=== PATIENT | female | born 1955 | race Caucasian/White ===

== ENCOUNTER 2017-09-25 20:48 | Emergency (ER) | payer MEDICARE, BC ==
[2017-09-25 21:24] VITALS: RESP 18
--- NOTE | 2017-09-25 21:57 | ED ---
General Adult HPI - General Chief complaint: Fall Stated complaint: fall/back & neck pain Time Seen by Provider: 09/25/17 21:30 Source: patient, RN notes reviewed Mode of arrival: ambulatory Limitations: no limitations - History of Present Illness Initial comments: 62-year-old female presents to the emergency department for chief complaint of back pain. Patient states she was walking outside last night when she slipped and fell on her back. Patient denies hitting her head or loss of consciousness. Patient states that her afterwards but continued to progress throughout the day today. Patient states it has continued to get more stiff and sore. Patient has a history of rheumatoid arthritis and fibromyalgia. Patient states she has used medical marijuana earlier today but has not tried Motrin or Tylenol. Patient states her neck also feels tender and sore. Patient states she is able to drink liquids without any problem and denies any shortness of breath or difficulty breathing. Patient denies any other complaints at this time including abdominal pain, shortness of breath, chest pain, nausea or vomiting. - Related Data Home Medications Medication Instructions Recorded Confirmed Citalopram Hydrobromide [CeleXA] 20 mg PO DAILY 11/04/15 09/25/17 Etanercept [Enbrel] 50 mg SQ FR 11/04/15 09/25/17 Folic Acid 0.8 mg PO DAILY 11/04/15 09/25/17 Gabapentin [Neurontin] 400 mg PO TID 11/04/15 09/25/17 Hydrochlorothiazide [Hydrodiuril] 25 tab PO DAILY 11/04/15 09/25/17 Meloxicam [Mobic] 15 mg PO DAILY 11/04/15 09/25/17 Nortriptyline [Pamelor] 100 mg PO DAILY 11/04/15 09/25/17 Omeprazole [PriLOSEC] 20 mg PO [id number]-[id number] 11/04/15 09/25/17 traMADol HCL [Ultram] 50 mg PO BID 11/04/15 09/25/17 Advair Diskus (Unsure Dose) 1 puff INHALATION DAILY 12/15/15 09/25/17 Previous Rx's Medication Instructions Recorded Atorvastatin Calcium [Lipitor] 10 mg PO HS #30 tab 11/07/15 Colchicine [Colcrys] 0.6 mg PO DAILY #30 tab 11/07/15 Cyclobenzaprine [Flexeril] 5 mg PO TID #12 tablet 09/25/17 Allergies Allergy/AdvReac Type Severity Reaction Status Date / Time pregabalin [From Lyrica] Allergy Hallucinati Verified 09/25/17 21:24 ons Review of Systems ROS Statement: Those systems with pertinent positive or pertinent negative responses have been documented in the HPI. ROS Other: All systems not noted in ROS Statement are negative. Past Medical History Past Medical History: Asthma, Chest Pain / Angina, Heart Failure, Fibromyalgia, GERD/Reflux, Hyperlipidemia, Hypertension, Osteoarthritis (OA), Rheumatoid Arthritis (RA) Additional Past Medical History / Comment(s): DJD. Pericarditis. Gout. RA. Hiatal Hernia. FATTY LIVER. HX UTI'S. History of Any Multi-Drug Resistant Organisms: None Reported Past Surgical History: Appendectomy, Cholecystectomy, Heart Catheterization, Hysterectomy Additional Past Surgical History / Comment(s): CTR AIDAN, EXC CYSTS AIDAN WRISTS. C. CATH 11/07/15, [place]. Past Anesthesia/Blood Transfusion Reactions: Previous Problems w/ Anesthesia Additional Past Anesthesia/Blood Transfusion Reaction / Comment(s): Claustrophobia. HAD RASH AFTER EPIDURAL INJ. Past Psychological History: No Psychological Hx Reported Smoking Status: Former smoker Past Alcohol Use History: Rare Past Drug Use History: None Reported - Past Family History Father History Unknown: Yes Mother Family Medical History: Cancer Additional Family Medical History / Comment(s): ovarian,kidney cancer General Exam Limitations: no limitations General appearance: alert, in no apparent distress Head exam: Present: atraumatic, normocephalic, normal inspection Eye exam: Present: normal appearance, PERRL, EOMI. Absent: scleral icterus, conjunctival injection, periorbital swelling ENT exam: Present: normal exam, mucous membranes moist Neck exam: Present: tenderness (Patient has tenderness on the vertebrae in the neck.). Absent: meningismus, full ROM (Patient has slightly limited range of motion in the neck.), lymphadenopathy Respiratory exam: Present: normal lung sounds bilaterally. Absent: respiratory distress, wheezes, rales, rhonchi, stridor Cardiovascular Exam: Present: regular rate, normal rhythm, normal heart sounds. Absent: systolic murmur, diastolic murmur, rubs, gallop, clicks GI/Abdominal exam: Present: soft, normal bowel sounds. Absent: distended, tenderness, guarding, rebound, rigid Back exam: Present: tenderness (Tenderness of the thoracic and lumbar spine.), paraspinal tenderness (Tenderness to the upper left paraspinal area), vertebral tenderness (Vertebral tenderness from C-spine to lumbar spine.). Absent: full ROM (Patient has some limited flexion and twisting of the low back.), CVA tenderness (R), CVA tenderness (L) Neurological exam: Present: alert, oriented X3, CN II-XII intact Course Vital Signs 09/25/17 21:20 Temperature 98.3 F Pulse Rate 62 Respiratory 18 Rate Blood Pressure 173/74 O2 Sat by Pulse 99 Oximetry Medical Decision Making - Medical Decision Making 62-year-old female presents to the emergency department for a chief complaint of back pain after falling last night. Patient denies hitting her head. Patient has a history of rheumatoid arthritis and fibromyalgia and has chronic back pain. Patient has not tried Motrin or Tylenol for pain relief but has tried medical marijuana earlier this morning. Patient states she is also tender in her neck. Patient states she is drinking liquids fine. She denies any difficulty breathing. Patient denies bladder or bowel changes. Patient denies numbness or tingling in the bilateral lower extremities. On exam patient has tenderness from the C-spine to the lumbar spine. She does have some paravertebral tenderness on the upper left back. X-rays were ordered of the C-spine, thoracic spine, and lumbar spine. X-ray of the C-spine shows no acute fracture or dislocation. The prevertebral soft tissue appears within normal limits. Thoracic spine shows no acute fracture or dislocation. Ribs are unremarkable. Lumbar spine x-ray shows satisfactory alignment without evidence of acute fracture or dislocation. Moderate to advanced disc space narrowing L3 to L4 is redemonstrated. Patient likely has muscle strain due to the fall causing the pain along with her chronic back pain, fibromyalgia, and rheumatoid arthritis. Patient will be given Motrin and Flexeril. She is to follow up with primary care provider in one to 2 days. She is to return to the emergency Department if she has any worsening symptoms, bladder or bowel changes , or difficulty breathing. Disposition Clinical Impression: Fall Disposition: HOME SELF-CARE Condition: Good Instructions: Back Pain (ED) Additional Instructions: Please return to the emergency Department if you notice any worsening symptoms or changes in bladder or bowel function. Take Motrin or Tylenol and Flexeril for pain relief. Otherwise follow-up with primary care provider in one to 2 days. Prescriptions: Cyclobenzaprine [Flexeril] 5 mg PO TID #12 tablet Is patient prescribed a controlled substance at discharge?: No Referrals: Van Vicente MD [Primary Care Provider] - 1-2 days Time of Disposition: 22:14
--- NOTE | 2017-09-25 22:03 | XR ---
EXAMINATION TYPE: XR cervical spine comp DATE OF EXAM: 09/25/2017 TECHNIQUE: Frontal, lateral, oblique, swimmers, and open mouth view of the cervical spine are obtaine d. HISTORY: Pain falling injury yesterday COMPARISON: None FINDINGS: The cervical spine is visualized in its entirety from C1 thru the top of T1 level, it is s atisfactory in alignment without evidence of acute fracture or dislocation. The pre-vertebral soft t issue appears within normal limits. The C1-C2 articulation is within normal limits on the open mouth view. Vertebral body heights are maintained. There is moderate multilevel disc space narrowing and s purring. The oblique images are within normal limits. Overlying soft tissue is unremarkable. IMPRESSION: No acute fracture or dislocation is seen in the cervical spine.
--- NOTE | 2017-09-25 22:04 | XR ---
EXAMINATION TYPE: XR thoracic spine complete DATE OF EXAM: 09/25/2017 CLINICAL HISTORY: Fall yesterday with mid back pain. TECHNIQUE: Frontal, lateral, and swimmer's view of thoracic spine are obtained. COMPARISON: None. FINDINGS: Thoracic spine show satisfactory alignment without evidence of acute fracture or dislocatio n. Vertebral body heights and disc space heights are preserved. Visualized ribs are unremarkable. Cholecystectomy clips are incidentally noted. IMPRESSION: No acute fracture or dislocation is seen in the thoracic spine.
--- NOTE | 2017-09-25 22:05 | XR ---
EXAMINATION TYPE: XR lumbar spine 2 or 3V DATE OF EXAM: 09/25/2017 CLINICAL HISTORY: Back pain after falling yesterday. TECHNIQUE: Frontal and lateral images of the lumbar spine are obtained. COMPARISON: Lumbar spine x-ray July 01, 2014 FINDINGS: There are 5 lumbar type vertebral bodies redemonstrated. The lumbar spine shows satisfact ory alignment without evidence of acute fracture or dislocation. Vertebral body heights remain within normal limits. Moderate to advanced disc space narrowing L2-L3 level is redemonstrated. Mild vascula r calcification overlying soft tissue is seen along with cholecystectomy clips. IMPRESSION: No acute fracture or dislocation is seen in the lumbar spine.
[2017-09-25 22:51] VITALS: BP 154/73; PULSE 65; TEMP 98.2
== END 2017-09-25 22:25 | disposition home or self-care (01) ==
LOC: EC 20:48
DX: M54.2 Cervicalgia (principal); M48.061 Spinal stenosis, lumbar region without neurogenic claudication; M54.9 Dorsalgia, unspecified; I11.0 Hypertensive heart disease with heart failure; I50.9 Heart failure, unspecified; J45.909 Unspecified asthma, uncomplicated; M06.9 Rheumatoid arthritis, unspecified; M79.7 Fibromyalgia; M10.9 Gout, unspecified; K21.9 Gastro-esophageal reflux disease without esophagitis; M19.90 Unspecified osteoarthritis, unspecified site; Z87.891 Personal history of nicotine dependence; Z79.1 Long term (current) use of non-steroidal anti-inflammatories (NSAID); Z79.51 Long term (current) use of inhaled steroids; Z79.891 Long term (current) use of opiate analgesic; Z79.899 Other long term (current) drug therapy; Z88.8 Allergy status to other drugs, medicaments and biological substances; W01.0XXA Fall on same level from slipping, tripping and stumbling without subsequent striking against object, initial encounter; Y93.01 Activity, walking, marching and hiking; Y92.89 Other specified places as the place of occurrence of the external cause
CPT/HCPCS: 72050; 72072; 72100; 99283

== ENCOUNTER 2017-10-14 18:56 | Observation (INO) | payer MEDICARE, BC ==
[2017-10-14] MEDS ORDERED: ONDANSETRON 4 MG/2 ML VIAL IVP STA ×2 (19:13→22:59)
[2017-10-14] MEDS ORDERED: SODIUM CHLORIDE 0.9% 1,000 ML IV STA (19:13)
[2017-10-14] MEDS ORDERED: NITROGLYCERIN OINT 1 INCH/GM PACKET TOPICAL STA (19:13)
[2017-10-14] MEDS ORDERED: MORPHINE SULFATE 4 MG/ML SYRINGE IV STA (19:13)
[2017-10-14 19:59] LABS: Basophils % (A) 1 %; Eosinophils # (A) 0.3 k/uL (0-0.7); Eosinophils % (A) 3 %; HCT 44.2 % (34.0-46.0); HGB 15.1 gm/dL (11.4-16.0); Lymphocytes # (A) 3.8 k/uL (1.0-4.8); Lymphocytes % (A) 41 %; MCH 29.6 pg (25.0-35.0); MCHC 34.1 g/dL (31.0-37.0); MCV 86.8 fL (80.0-100.0); Mean Platelet Volume 7.5; Monocytes # (A) 0.5 k/uL (0-1.0); Monocytes % (A) 6 %; Neutrophils # (A) 4.5 k/uL (1.3-7.7); Neutrophils % (A) 48 %; Platelet Count 304 k/uL (150-450); RBC 5.09 m/uL (3.80-5.40); RDW 12.2 % (11.5-15.5); WBC 9.3 k/uL (3.8-10.6)
--- NOTE | 2017-10-14 20:01 | CT ---
EXAMINATION TYPE: CT brain wo con DATE OF EXAM: 10/14/2017 COMPARISON: NONE HISTORY: Headache and chest pain today. CT DLP: 1022.8 mGycm Automated exposure control for dose reduction was used. FINDINGS: Ventricles of normal size. There is no mass effect nor midline shift. There is no sign of intracrania l hemorrhage. The calvarium is intact. IMPRESSION: NEGATIVE CT SCAN OF THE BRAIN.
[2017-10-14 20:05] LABS: ALT 38 U/L (9-52); AST 23 U/L (14-36); Albumin 4.4 g/dL (3.5-5.0); Alkaline Phosphatase 80 U/L (38-126); Anion Gap 14 mmol/L; Blood Urea Nitrogen 15 mg/dL (7-17); Calcium 9.5 mg/dL (8.4-10.2); Carbon Dioxide 23 mmol/L (22-30); Chloride 107 mmol/L (98-107); Glucose 107 mg/dL (74-99); Magnesium 2.2 mg/dL (1.6-2.3); Potassium 3.5 mmol/L (3.5-5.1); Sodium 144 mmol/L (137-145); Total Bilirubin 0.4 mg/dL (0.2-1.3)
[2017-10-14 20:08] LABS: D-Dimer 0.22 mg/L FEU (<0.60); Partial Thromboplastin Time 22.9 sec (22.0-30.0); Prothrombin Time 9.9 sec (9.0-12.0)
[2017-10-14 20:15] LABS: Creatine Kinase 119 U/L (30-135)
[2017-10-14 20:27] LABS: Troponin I <0.012 ng/mL (0.000-0.034)
--- NOTE | 2017-10-14 20:30 | XR ---
EXAMINATION TYPE: XR chest 2V DATE OF EXAM: 10/14/2017 COMPARISON: NONE HISTORY: Chest pain TECHNIQUE: Frontal and lateral views of the chest are obtained. FINDINGS: Heart and mediastinum are normal. Lungs are clear. Diaphragm is normal. There are chest le ads. Bony thorax is intact. IMPRESSION: Normal chest. There is clearing of the atelectasis at the left lung base compared to old exam.
--- NOTE | 2017-10-14 22:48 | ED ---
Chest Pain HPI - General Chief Complaint: Chest Pain Stated Complaint: Chest pain Time Seen by Provider: 10/14/17 19:07 Source: patient Mode of arrival: wheelchair Limitations: no limitations - History of Present Illness Initial Comments: She had a headache for about 24 hours now for the last 2 hours prior to arrival to the ER she developed the chest pain chest pain is 6/10 chest pain gets worse with a deep breaths. Today she still has a headache it's better than earlier in the day no neck stiffness has some chest pain is she is she is short-winded no abdominal pain no frequency urgency dysuria no symptoms of TIA or CVA - Related Data Home Medications Medication Instructions Recorded Confirmed Etanercept [Enbrel] 50 mg SQ FR 11/04/15 10/14/17 Omeprazole Magnesium [PriLOSEC OTC] 20 mg PO DAILY 10/14/17 10/14/17 diphenhydrAMINE [Benadryl] 25 mg PO HS 10/14/17 10/14/17 Allergies Allergy/AdvReac Type Severity Reaction Status Date / Time pregabalin [From Lyrica] Allergy Hallucinati Verified 10/14/17 19:44 ons Review of Systems ROS Statement: Those systems with pertinent positive or pertinent negative responses have been documented in the HPI. ROS Other: All systems not noted in ROS Statement are negative. EKG Findings - EKG Comments: EKG Findings:: EKG is normal sinus rhythm ventricular rate 77 TN interval is 180 QRS duration is 90 QT/QTc is 386/436 review of systems didn't does not reveal any ST elevation or ST depression Past Medical History Past Medical History: Asthma, Chest Pain / Angina, Heart Failure, Fibromyalgia, GERD/Reflux, Hyperlipidemia, Hypertension, Osteoarthritis (OA), Rheumatoid Arthritis (RA) Additional Past Medical History / Comment(s): DJD. Pericarditis. Gout. RA. Hiatal Hernia. FATTY LIVER. HX UTI'S. History of Any Multi-Drug Resistant Organisms: None Reported Past Surgical History: Appendectomy, Cholecystectomy, Heart Catheterization, Hysterectomy Additional Past Surgical History / Comment(s): CTR AIDAN, EXC CYSTS AIDAN WRISTS. C. CATH 11/07/15, [place]. Past Anesthesia/Blood Transfusion Reactions: Previous Problems w/ Anesthesia Additional Past Anesthesia/Blood Transfusion Reaction / Comment(s): Claustrophobia. HAD RASH AFTER EPIDURAL INJ. Past Psychological History: No Psychological Hx Reported Smoking Status: Former smoker Past Alcohol Use History: Rare Past Drug Use History: Marijuana - Past Family History Father History Unknown: Yes Mother Family Medical History: Cancer Additional Family Medical History / Comment(s): ovarian,kidney cancer General Exam - General Exam Comments Initial Comments: General: The patient is awake and alert, in no distress, and does not appear acutely ill. Distress from chest pain Skin: Skin is warm and dry and no rashes or lesions are noted. Eye: Pupils are equal, round and reactive to light, extra-ocular movements are intact; there is normal conjunctiva bilaterally. Ears, nose, mouth and throat: There are moist mucous membranes and no oral lesions. Neck: The neck is supple, there is no tenderness or JVD, no signs of any meningitis Cardiovascular: There is a regular rate and rhythm. No murmur, rub or gallop is appreciated. Respiratory: To auscultation bilateral, no wheezing no rhonchi no distress respiratory cox noticed Gastrointestinal: Soft, non-distended, non-tender abdomen without masses or organomegaly noted. There is no rebound or guarding present. Bowel sounds are unremarkable. Back: There is no tenderness to palpation in the midline. There is no obvious deformity. Musculoskeletal: Normal ROM, no tenderness, There is no pedal edema. There is no calf tenderness or swelling. No cords were appreciated. Neurological: CN II-XII intact, Cranial nerves III through XII are intact. There are no obvious motor or sensory deficits. Coordination appears grossly intact. Speech is normal. Psychiatric: Cooperative, appropriate mood & affect, normal judgment. Limitations: no limitations Course Vital Signs 10/14/17 10/14/17 10/14/17 19:00 19:37 20:13 Temperature 97.1 F L Pulse Rate 82 92 80 Respiratory 18 18 18 Rate Blood Pressure 168/103 167/65 156/78 O2 Sat by Pulse 97 98 98 Oximetry 10/14/17 21:11 Temperature Pulse Rate 80 Respiratory 18 Rate Blood Pressure 155/80 O2 Sat by Pulse 98 Oximetry Centering she has a headache for the whole day and now chest pain in case she needs any blood thinners a lot of make sure she is not bleeding intracranially considering that head CT was done which is unremarkable d-dimer, CBC, CMP, troponin, EKG, chest x-ray are unremarkable considering her risk factors being 62 and ongoing chest pain she be admitted for unstable angina, cardiology be consulted Disposition Clinical Impression: Headache, Chest pain Disposition: ADMITTED IP TO THIS HOSP Condition: Good Referrals: Van Vicente MD [Primary Care Provider] - 1-2 days
[2017-10-14] MEDS: MORPHINE SULFATE 4 MG/ML SYRINGE IV PRN ×2 (23:04→23:57)
[2017-10-14 23:45] VITALS: BMI 30.5
[2017-10-14] MEDS ORDERED: ACETAMINOPHEN TAB 325 MG TAB PO PRN (23:53)
[2017-10-14] MEDS: NITROGLYCERIN OINT 1 INCH/GM PACKET TOPICAL SCH (23:57)
[2017-10-15 02:04] LABS: Creatine Kinase 89 U/L (30-135)
[2017-10-15 02:15] LABS: Troponin I <0.012 ng/mL (0.000-0.034)
[2017-10-15] MEDS: ONDANSETRON 4 MG/2 ML VIAL IVP PRN ×4 (02:35→21:03)
[2017-10-15] MEDS: MORPHINE SULFATE 4 MG/ML SYRINGE IV PRN ×2 (02:35→05:51)
[2017-10-15] MEDS: NITROGLYCERIN OINT 1 INCH/GM PACKET TOPICAL SCH (05:25)
[2017-10-15 07:50] LABS: Cholesterol 168 mg/dL (<200); HDL Cholesterol 44 mg/dL (40-60); LDL Cholesterol,Calculated 106 mg/dL (0-99); Triglycerides 89 mg/dL (<150)
[2017-10-15 08:11] LABS: Creatine Kinase 89 U/L (30-135)
[2017-10-15] MEDS ORDERED: PROCHLORPERAZINE 10 MG TAB PO PRN (08:11)
[2017-10-15 08:23] LABS: Creatine Kinase MB 0.9 ng/mL (0.0-2.4); Troponin I <0.012 ng/mL (0.000-0.034)
[2017-10-15] MEDS ORDERED: ASPIRIN 325 MG TAB PO SCH (09:00)
[2017-10-15] MEDS ORDERED: KETOROLAC 30 MG/ML 1 ML VIAL IVP STA (09:03)
[2017-10-15] MEDS ORDERED: ASPIRIN 81 MG PO SCH (09:03)
--- NOTE | 2017-10-15 09:14 | P.CRDCN ---
History of Present Illness Consult date: 10/15/17 History of present illness: Mrs. Rajan is a pleasant 62-year-old female past medical history significant for rheumatoid arthritis, gout and history of pericarditis. She denies history of hypertension, dyslipidemia, diabetes mellitus or coronary artery disease. We have been asked to see her in consultation for chest pain. She states she woke up yesterday with a headache that felt like a sinus congestion type headache. She went to work and was working for approximately 2 hours when she developed a sharp pain in the left precordial region that radiated through to her back. The pain was very intense initially and is worse with deep inspiration. There is no radiation to the arm, neck or jaw. She has associated nausea and mild shortness of breath. The breathing is more due to the pain with inspiration so she feels as if her breathing is shallow to avoid pain. She denies palpitations, diaphoresis, dizziness or vomiting. The pain has been consistent since it started yesterday evening with no specific alleviating factors. She received nitropaste in the ED and it didn't help the pain but intensified her headache and was removed. EKG reveals sinus mechanism with no acute ST or T-wave abnormalities. Telemetry tracings have been unremarkable. Chest xray negative for an acute cardiopulmonary process with clearing of atelectasis of left lung base. CT brain negative. Laboratory data reviewed, hemoglobin 15.1, platelets 304, d-dimer 0.22, sodium 144, potassium 3.5, magnesium 2.2, creatinine 0.8, cardiac enzymes negative 3, LDL 106, HDL 44. Current medications include Prilosec and Enbrel. Most recent cardiac catheterization performed October 2015 reveals normal coronary arteries with a normal LV systolic function. Review of Systems At the time of my exam: CONSTITUTIONAL: Denies fever. Denies chills. EYES: Denies blurred vision. Denies vision changes. Denies eye pain. EARS, NOSE, MOUTH & THROAT: Denies headache. Denies sore throat. Denies ear pain. CARDIOVASCULAR: Complains of pleuritic chest pain. Denies shortness of breath. Denies orthopnea. Denies PND. Denies palpitations. RESPIRATORY: Denies cough. GASTROINTESTINAL: Denies abdominal pain. Denies diarrhea. Denies constipation. lore complains ofsea. Denies vomiting. MUSCULOSKELETAL: Denies myalgias. INTEGUMENTARY: Denies pruitis. Denies rash. NEUROLOGIC: Denies numbness. Denies tingling. Denies weakness. PSYCHIATRIC: Denies anxiety. Denies depression. ENDOCRINE: Denies fatigue. Denies weight change. Denies polydipsia. Denies polyurina. GENITOURINARY: Denies burning, hematuria or urgency with micturation. HEMATOLOGIC: Denies history of anemia. Denies bleeding. Past Medical History Past Medical History: Asthma, Chest Pain / Angina, Heart Failure, Fibromyalgia, GERD/Reflux, Hyperlipidemia, Hypertension, Osteoarthritis (OA), Rheumatoid Arthritis (RA) Additional Past Medical History / Comment(s): DJD. Pericarditis. Gout. RA. Hiatal Hernia. FATTY LIVER. HX UTI'S. History of Any Multi-Drug Resistant Organisms: None Reported Past Surgical History: Appendectomy, Cholecystectomy, Heart Catheterization, Hysterectomy Additional Past Surgical History / Comment(s): ganglion CYSTS AIDAN WRISTS removed. C. CATH 11/07/15, [place]. Past Anesthesia/Blood Transfusion Reactions: Previous Problems w/ Anesthesia Additional Past Anesthesia/Blood Transfusion Reaction / Comment(s): Claustrophobia. HAD RASH AFTER EPIDURAL INJ. Smoking Status: Former smoker - Past Family History Father History Unknown: Yes Family Medical History: Rheumatoid Arthritis (RA) Additional Family Medical History / Comment(s): Poss MS Mother Family Medical History: Cancer Additional Family Medical History / Comment(s): ovarian,kidney cancer Sister(s) Family Medical History: Diabetes Mellitus Medications and Allergies Home Medications Medication Instructions Recorded Confirmed Type Etanercept [Enbrel] 50 mg SQ FR 11/04/15 10/14/17 History Omeprazole Magnesium [PriLOSEC OTC] 20 mg PO DAILY 10/14/17 10/14/17 History diphenhydrAMINE [Benadryl] 25 mg PO HS 10/14/17 10/14/17 History Allergies Allergy/AdvReac Type Severity Reaction Status Date / Time pregabalin [From Lyrica] Allergy Hallucinati Verified 10/14/17 23:29 ons cortisone AdvReac Rash/Hives Verified 10/14/17 23:31 Physical Exam Vitals: Vital Signs Temp Pulse Pulse Resp BP BP Pulse Ox 10/15/17 07:15 97.4 F L 64 18 146/68 95 10/15/17 03:52 97.6 F 53 L 16 135/64 97 10/15/17 03:42 18 10/15/17 00:00 97.6 F 69 16 177/86 95 10/14/17 23:06 98.1 F 79 18 148/79 98 10/14/17 21:11 80 18 155/80 98 10/14/17 20:13 80 18 156/78 98 10/14/17 19:37 92 18 167/65 98 10/14/17 19:00 97.1 F L 82 18 168/103 97 Intake and Output 10/14/17 10/15/17 10/15/17 22:59 06:59 14:59 Other: # Voids 1 Weight 73.482 kg 73.4 kg Blood pressure 146/68 heart rate 64 afebrile maintaining oxygen saturation on room air GENERAL: This is a 62-year-old female in no apparent distress at the time of my examination. HEENT: Head is atraumatic, normocephalic. Pupils are equal, round. Sclerae anicteric. Conjunctivae are clear. Mucous membranes of the mouth are moist. Neck is supple. There is no jugular venous distention. No carotid bruit is heard. LUNGS: Clear to auscultation no wheezes, rales or rhonchi. No chest wall tenderness is noted on palpation or with deep breathing. HEART: Regular rate and rhythm with systolic ejection murmur at the base, no rubs or gallops. S1 and S2 heard. ABDOMEN: Soft, nontender. Bowel sounds are heard. No organomegaly noted. EXTREMITIES: No evidence of peripheral edema and no calf tenderness noted. VASCULAR: Radial and dorsalis pedis pulses palpated, no evidence of clubbing. NEUROLOGIC: Patient is awake, alert and oriented x3. Results 10/14/17 19:36 10/14/17 19:36 Cardiac Enzymes 10/14/17 10/14/17 10/15/17 Range/Units 19:36 19:36 01:17 AST 23 (14-36) U/L CK-MB (CK-2) 1.0 1.0 (0.0-2.4) ng/mL Troponin I <0.012 <0.012 (0.000-0.034) ng/mL Coagulation 10/14/17 Range/Units 19:36 PT 9.9 (9.0-12.0) sec APTT 22.9 (22.0-30.0) sec Lipids 10/15/17 Range/Units 07:04 Triglycerides 89 (<150) mg/dL Cholesterol 168 (<200) mg/dL HDL Cholesterol 44 (40-60) mg/dL CBC 10/14/17 Range/Units 19:36 WBC 9.3 (3.8-10.6) k/uL RBC 5.09 (3.80-5.40) m/uL Hgb 15.1 (11.4-16.0) gm/dL Hct 44.2 (34.0-46.0) % Plt Count 304 (150-450) k/uL Comprehensive Metabolic Panel 10/14/17 Range/Units 19:36 Sodium 144 (137-145) mmol/L Potassium 3.5 (3.5-5.1) mmol/L Chloride 107 (98-107) mmol/L Carbon Dioxide 23 (22-30) mmol/L BUN 15 (7-17) mg/dL Creatinine 0.80 (0.52-1.04) mg/dL Glucose 107 H (74-99) mg/dL Calcium 9.5 (8.4-10.2) mg/dL AST 23 (14-36) U/L ALT 38 (9-52) U/L Alkaline Phosphatase 80 (38-126) U/L Total Protein 7.0 (6.3-8.2) g/dL Albumin 4.4 (3.5-5.0) g/dL Current Medications Generic Name Dose Route Start Last Admin Trade Name Freq PRN Reason Stop Dose Admin Acetaminophen 650 mg 10/14/17 23:53 Tylenol Tab PO Q4HR PRN Fever and/ or Pain Aspirin 325 mg 10/15/17 09:00 Aspirin PO DAILY DEANA Diphenhydramine HCl 25 mg 10/15/17 21:00 Benadryl PO HS DEANA Sodium Chloride 1,000 mls @ 75 mls/hr 10/14/17 19:13 10/14/17 19:44 Saline 0.9% IV 10/15/17 08:32 75 mls/hr .[id number] STA Administration Morphine Sulfate 4 mg 10/14/17 22:52 10/15/17 05:51 Morphine Sulfate (Inj) IV 4 mg Q5M PRN Administration Chest Pain Nitroglycerin 1 inch 10/15/17 00:00 10/15/17 05:25 Nitro-Bid Oint TOPICAL Not Given Q6HR DEANA Enbrel 50mg 50 mg 10/18/17 22:57 SQ FR DEANA Ondansetron HCl 4 mg 10/14/17 23:56 10/15/17 06:28 Zofran IVP 4 mg Q6HR PRN Administration Nausea And Vomiting Pantoprazole Sodium 40 mg 10/15/17 09:00 Protonix PO DAILY DEANA Intake and Output 10/14/17 10/15/17 10/15/17 22:59 06:59 14:59 Other: # Voids 1 Weight 73.482 kg 73.4 kg 10/14/17 19:36 10/14/17 19:36 Assessment and Plan Assessment: ASSESSMENT 1. Pleuritic chest pain. Normal cardiac catheterization 2015 with history of recurrent pericarditis. 2. Daily marijuana use 3. Obesity PLAN Obtain 2D echocardiogram and doppler study to assess cardiac structure and function and evaluate for pericarditis. Check sedimentation rate. Give one dose of toradol 30 mg IV for chest pain. Discontinue nitropaste, causing headache. Feed the patient. Further recommendations to follow based on clinical course. Nurse Practitioner note has been reviewed, I agree with a documented findings and plan of care. Patient was seen and examined.
[2017-10-15] MEDS: PANTOPRAZOLE 40 MG TABLET PO SCH (09:35)
--- NOTE | 2017-10-15 12:27 | HP ---
HISTORY AND PHYSICAL CHIEF COMPLAINT: A 62-year-old white female, a significant history of rheumatoid arthritis, gout, pericarditis. She states she has had chest pain like this similar to when she had pericarditis in [place], history diabetes mellitus hypertension is all negative. No heart disease in the past. She did have some headaches, some sinus congestion. At work, she developed a sharp pain in the left precordial chest, more sharp, worse with deep inspiration, not radiated to her neck or down her arm, not worse with movement, but worse with deep breath. She was admitted to rule out myocardial infarction. So far, troponins, EKGs are all normal. D-dimer is negative. Chest x-ray is negative. CT of the brain is negative. REVIEW OF SYSTEMS: Fourteen-point review of systems negative except for mentioned in HPI. PAST MEDICAL HISTORY: Asthma, heart failure, fibromyalgia, GERD, dyslipidemia, hypertension, osteoarthritis, rheumatoid arthritis, fatty liver surgery, appendectomy, cholecystectomy, heart catheterization, hysterectomy. FAMILY HISTORY: Father with rheumatoid arthritis. Mother with cancer of the ovary and renal. Sister with diabetes mellitus. HOME MEDICINES: 1. Enbrel 50 mg subcutaneous weekly. 2. Benadryl 25 mg daily. 3. Prilosec 20 mg daily. PHYSICAL EXAM: Temp 97.4, pulse 50s to 60s, respiratory rate 16 to 18, blood pressure is 130s to 170s over 60s to 80s. GENERAL: Normocephalic, atraumatic. CARDIOVASCULAR: S1, S2. LUNGS: Transmitted upper airway sounds. GI: Soft, nontender. MUSCULOSKELETAL: Nontender over the chest wall. ABDOMEN: Soft, nontender. VASCULAR: Normal dorsalis pedis and posterior tibial pulses. NEUROLOGIC: Alert and oriented x3. LABS: Labs are reviewed with normal CBC, Chem panel, and troponins. ASSESSMENT: 1. Rheumatoid arthritis. 2. Atypical chest pain. 3. Pleuritic chest pain with normal heart catheterization in 2016 with history of recurrent pericarditis. 4. Daily marijuana use. 5. Obesity. PLAN: They are going to do an echo to evaluate for pericarditis. Check the Sed rate Toradol for chest pain. They stopped her nitro paste which was causing headaches. Ambulate. Possible discharge home today depending on Sed rate, echo report. MMODL / IJN: [id number] /
[2017-10-15] MEDS ORDERED: diphenhydrAMINE 25 MG CAP PO SCH (21:00)
[2017-10-16 07:53] VITALS: RESP 18
[2017-10-16] MEDS: PANTOPRAZOLE 40 MG TABLET PO SCH (08:59)
[2017-10-16] MEDS ORDERED: MORPHINE ORAL SOLN 10 MG/5 ML CUP PO PRN (11:03)
--- NOTE | 2017-10-16 11:08 | ECHOF ---
Referral Reason:cp MEASUREMENTS -------- HEIGHT: 154.9 cm WEIGHT: 73.0 kg BP: 146/68 RVIDd: 2.4 cm (< 3.3) IVSd: 1.0 cm (0.6 - 1.1) LVIDd: 3.9 cm (3.9 - 5.3) LVPWd: 1.0 cm (0.6 - 1.1) IVSs: 1.3 cm LVIDs: 3.1 cm LVPWs: 1.3 cm LAESV Index (A-L): 19.59 ml/m Ao Diam: 2.6 cm (2.0 - 3.7) AV Cusp: 1.6 cm (1.5 - 2.6) LA Diam: 3.2 cm (2.7 - 3.8) MV E Darrick: 1.02 m/s MV DecT: 245 ms MV A Darrick: 1.13 m/s MV E/A Ratio: 0.90 RAP: 5.00 mmHg RVSP: 48.24 mmHg MV EF SLOPE: 77.20 mm/s (70 - 150) MV EXCURSION: 1.24 cm (> 18.000) FINDINGS -------- Sinus rhythm. This was a technically adequate study. The left ventricular size is normal. Left ventricular wall thickness is normal. Overall left vent ricular systolic function is normal with, an EF between 55 - 60 %. The right ventricle is normal in size and function. Normal LA size by volume 22+/-6 ml/m2. The right atrium is normal in size. Aortic valve is trileaflet and is mildly thickened. There is no evidence of aortic regurgitation. There is no evidence of aortic stenosis. The mitral valve leaflets are mildly thickened. There is trace to mild mitral regurgitation. Mild tricuspid regurgitation present. There is mild pulmonary hypertension. The right ventricular systolic pressure, as measured by Doppler, is 48.24mmHg. The pulmonic valve is normal. The aortic root size is normal. Normal inferior vena cava with normal inspiratory collapse consistent with estimated right atrial pre ssure of 5 mmHg. There is a trivial pericardial effusion present. CONCLUSIONS -------- 1. Sinus rhythm. 2. This was a technically adequate study. 3. The left ventricular size is normal. 4. Left ventricular wall thickness is normal. 5. Overall left ventricular systolic function is normal with, an EF between 55 - 60 %. 6. Normal LA size by volume 22+/-6 ml/m2. 7. Aortic valve is trileaflet and is mildly thickened. 8. The mitral valve leaflets are mildly thickened. 9. There is trace to mild mitral regurgitation. 10. Mild tricuspid regurgitation present. 11. There is mild pulmonary hypertension. 12. The right ventricular systolic pressure, as measured by Doppler, is 48.24mmHg. 13. The aortic root size is normal. 14. There is a trivial pericardial effusion present. CAR WHACKER: Abner White RDCS
[2017-10-16 11:46] VITALS: BP 132/66; PULSE 60; TEMP 98.5
--- NOTE | 2017-10-16 14:36 | P.PN ---
Subjective Progress Note Date: 10/16/17 Mrs. Rajan is a pleasant 62-year-old female past medical history significant for rheumatoid arthritis, gout and history of pericarditis. She denies history of hypertension, dyslipidemia, diabetes mellitus or coronary artery disease. We have been asked to see her in consultation for chest pain. She states she woke up yesterday with a headache that felt like a sinus congestion type headache. She went to work and was working for approximately 2 hours when she developed a sharp pain in the left precordial region that radiated through to her back. The pain was very intense initially and is worse with deep inspiration. There is no radiation to the arm, neck or jaw. She has associated nausea and mild shortness of breath. The breathing is more due to the pain with inspiration so she feels as if her breathing is shallow to avoid pain. She denies palpitations, diaphoresis, dizziness or vomiting. The pain has been consistent since it started yesterday evening with no specific alleviating factors. She received nitropaste in the ED and it didn't help the pain but intensified her headache and was removed. EKG reveals sinus mechanism with no acute ST or T-wave abnormalities. Telemetry tracings have been unremarkable. Chest xray negative for an acute cardiopulmonary process with clearing of atelectasis of left lung base. CT brain negative. Laboratory data reviewed, hemoglobin 15.1, platelets 304, d-dimer 0.22, sodium 144, potassium 3.5, magnesium 2.2, creatinine 0.8, cardiac enzymes negative 3, LDL 106, HDL 44. Current medications include Prilosec and Enbrel. Most recent cardiac catheterization performed October 2015 reveals normal coronary arteries with a normal LV systolic function. 10/16/2017 Echocardiogram and doppler reveals preserved LV systolic function with EF 55-60% , mild TR and mild pulmonary hypertension with RVSP 48.24 mmHg. No pericardititis. Sedimentation rate 3, LDL 106, HDL 44, cardiac enzymes negative x3. Objective - Vital Signs Vital signs: Vital Signs Temp 98.5 F 10/16/17 11:20 Pulse 60 10/16/17 11:20 Resp 18 10/16/17 11:20 BP 132/66 10/16/17 11:20 Pulse Ox 96 10/16/17 11:20 Intake & Output 10/15/17 10/16/17 10/16/17 18:59 06:59 18:59 Intake Total 400 360 Balance 400 360 Intake: Oral 400 360 Other: Voiding Method Toilet Toilet - Exam GENERAL: Well-appearing, well-nourished and in no acute distress. NECK: Supple without JVD or thyromegaly. LUNGS: Breath sounds clear to auscultation bilaterally. Respiration equal and unlabored. No wheezes, rales or rhonchi. HEART: Regular rate and rhythm with systolic ejection murmur at the base, no rubs or gallops. S1 and S2 heard. EXTREMITIES: Normal range of motion, no edema. No clubbing or cyanosis. Peripheral pulses intact and strong. - Labs CBC & Chem 7: 10/14/17 19:36 10/14/17 19:36 Assessment and Plan Assessment: ASSESSMENT 1. Pleuritic chest pain. Normal cardiac catheterization 2015 with history of recurrent pericarditis. 2. Daily marijuana use 3. Obesity PLAN Stable from a cardiac perspective with no evidence of pericarditis. Lifestyle modifications discussed for lowering of cholesterol and marijuana cessation. Follow up with Dr. Goldstein in 2-3 weeks. Nurse Practitioner note has been reviewed, I agree with a documented findings and plan of care. Patient was seen and examined.
[2017-10-18] MEDS ORDERED: ENBREL 50 MG SQ SCH (22:57)
== END 2017-10-16 14:20 | disposition home or self-care (01) ==
LOC: EC 18:56 → 3OBS 22:52
PROVIDERS: ADMIT Family Medicine; ATTEND Family Medicine
DX: M06.9 Rheumatoid arthritis, unspecified (principal); R07.89 Other chest pain; R06.02 Shortness of breath; R51 Headache; R07.2 Precordial pain; R11.0 Nausea; R07.81 Pleurodynia; R09.81 Nasal congestion; M79.7 Fibromyalgia; I50.9 Heart failure, unspecified; K21.9 Gastro-esophageal reflux disease without esophagitis; E78.5 Hyperlipidemia, unspecified; M10.9 Gout, unspecified; M19.90 Unspecified osteoarthritis, unspecified site; Z87.440 Personal history of urinary (tract) infections; I31.9 Disease of pericardium, unspecified; Z90.49 Acquired absence of other specified parts of digestive tract; Z88.8 Allergy status to other drugs, medicaments and biological substances; Z79.899 Other long term (current) drug therapy; Z87.891 Personal history of nicotine dependence; Z80.41 Family history of malignant neoplasm of ovary; Z80.51 Family history of malignant neoplasm of kidney; E66.9 Obesity, unspecified; Z68.30 Body mass index [BMI] 30.0-30.9, adult; Z83.3 Family history of diabetes mellitus
CPT/HCPCS: 99285 ×2; 96374 ×2; 96375 ×3; 96376 ×5; 96361 ×7; 36415; 93005; 93306; 85379; 80061; 80053; 85652; 82550 ×2; 82553 ×2; 83735; 84484 ×2; 85025; 85610; 85730; 71046; 70450; G0378 ×3; S0183; J2270 ×2; J2405 ×2; J1885

== ENCOUNTER → 2017-11-05 | Outpatient (CLI) | payer MEDICARE, BC ==
--- NOTE | 2017-11-05 08:53 | US ---
EXAMINATION TYPE: US abdomen complete DATE OF EXAM: 11/05/2017 COMPARISON: NONE CLINICAL HISTORY: RUQ Pain R10.1. Pt states ABD pain, GERD and h/o pancreatitis, GB removed EXAM MEASUREMENTS: Liver Length: 19.4 cm CBD: 0.9 cm Spleen: 9.6 cm Right Kidney: 8.9 x 3.8 x 5.3 cm Left Kidney: 11.2 x 4.8 x 4.7 cm Pancreas: wnl, tail obscured by overlying bowel gas Liver: Enlarged, heterogeneous Gallbladder: Surgically absent Evidence for sonographic Ace's sign: No CBD: wnl, for post abe Spleen: wnl Right Kidney: Small in size, otherwise appeared wnl Left Kidney: wnl Upper IVC: wnl Abd Aorta: wnl The liver is homogenous. The intrahepatic portion of the IVC and proximal abdominal aorta are within normal limits. Common bile duct is unremarkable. The visualized portions of the pancreas are homo genous. The spleen is unremarkable. Kidneys are symmetric and free of hydronephrosis. No renal les ions are seen. IMPRESSION: 1. Hepatomegaly with underlying fatty hepatic infiltration.
== END | disposition home or self-care (01) ==
LOC: RADUSWWP 07:44
PROVIDERS: ATTEND Family Medicine
DX: K76.0 Fatty (change of) liver, not elsewhere classified (principal)
CPT/HCPCS: 76700

== ENCOUNTER 2018-06-27 20:18 | Emergency (ER) | payer BC ==
[2018-06-27 20:46] VITALS: PULSE 64
[2018-06-27] MEDS ORDERED: predniSONE 20 MG TAB PO STA (22:02)
[2018-06-27] MEDS ORDERED: ORPHENADRINE 30 MG/ML 2 ML VIAL IM STA (22:02)
[2018-06-27] MEDS ORDERED: diphenhydrAMINE 50 MG CAP PO STA (22:02)
--- NOTE | 2018-06-27 22:28 | XR ---
EXAMINATION TYPE: XR Hip LT and AP Pelvis DATE OF EXAM: 06/27/2018 COMPARISON: NONE HISTORY: Left hip pain TECHNIQUE: A single AP view of the pelvis is obtained. Two views of the left hip are obtained. FINDINGS: The pelvic ring is intact. Proximal left femur and hip joint appear normal. There is no sig n of hip dysplasia. Sacroiliac joints appear intact. IMPRESSION: Normal pelvis and left hip exam.
--- NOTE | 2018-06-27 23:04 | ED ---
Back Pain HPI - General Chief Complaint: Extremity Injury, Lower Stated Complaint: Hip and back pain Time Seen by Provider: 06/27/18 21:24 Source: patient, family Limitations: no limitations - History of Present Illness Initial Comments: This patient is a 63-year-old woman who presents to be evaluated for pain in the left hip area. She states that it also is in the low back and seems to go down the left leg. She states that it had come on yesterday in the afternoon. It worsened during the night yesterday when she had attempted to get up to use the bathroom and had fallen to the side. She states that she tried to make it through the day but after she had been working for about 4 hours she had to leave work and decided to have the pain evaluated here. She states the pain is constant, aching, moderately severe. It is in the low back and left hip and it does seem to radiate down the leg. She denies weakness or numbness of the extremities. She has not had any change in bladder or bowel function. No saddle anesthesia. MD Complaint: back pain, other (hip pain) Onset/Timin -: days(s) Place: home Radiation: buttocks, left leg Severity: moderate Quality: aching Consistency: constant Improves With: immobilization Worsens With: movement Associated Symptoms: denies other symptoms, difficulty walking - Related Data Home Medications Medication Instructions Recorded Confirmed Etanercept [Enbrel] 50 mg SQ FR 11/04/15 06/27/18 Omeprazole Magnesium [PriLOSEC OTC] 20 mg PO DAILY 10/14/17 06/27/18 diphenhydrAMINE [Benadryl] 25 mg PO HS 10/14/17 06/27/18 Previous Rx's Medication Instructions Recorded Methocarbamol [Robaxin-750] 750 mg PO TID PRN #30 tablet 06/27/18 diphenhydrAMINE [Benadryl] 50 mg PO BID PRN #20 capsule 06/27/18 predniSONE 60 mg PO DAILY #30 tab 06/27/18 Allergies Allergy/AdvReac Type Severity Reaction Status Date / Time pregabalin [From Lyrica] Allergy Hallucinati Verified 06/27/18 21:15 ons cortisone AdvReac Rash/Hives Verified 06/27/18 21:15 Review of Systems ROS Statement: Those systems with pertinent positive or pertinent negative responses have been documented in the HPI. ROS Other: All systems not noted in ROS Statement are negative. Constitutional: Denies: fever, chills, weakness Respiratory: Denies: cough, dyspnea Cardiovascular: Denies: chest pain, edema Gastrointestinal: Denies: abdominal pain, vomiting, diarrhea, constipation Genitourinary: Denies: dysuria, hematuria Musculoskeletal: Reports: as per HPI, back pain, arthralgia Skin: Denies: rash Neurological: Denies: weakness, numbness, paresthesias Past Medical History Past Medical History: Asthma, Chest Pain / Angina, Heart Failure, Fibromyalgia, GERD/Reflux, Hyperlipidemia, Hypertension, Osteoarthritis (OA), Rheumatoid Arthritis (RA) Additional Past Medical History / Comment(s): DJD. Pericarditis. Gout. RA. Hiatal Hernia. FATTY LIVER. HX UTI'S. History of Any Multi-Drug Resistant Organisms: None Reported Past Surgical History: Appendectomy, Cholecystectomy, Heart Catheterization, Hysterectomy Additional Past Surgical History / Comment(s): ganglion CYSTS AIDAN WRISTS removed. C. CATH 11/07/15, [place]. Past Anesthesia/Blood Transfusion Reactions: Previous Problems w/ Anesthesia Additional Past Anesthesia/Blood Transfusion Reaction / Comment(s): Claustrophobia. HAD RASH AFTER EPIDURAL INJ. Past Psychological History: No Psychological Hx Reported Smoking Status: Former smoker Past Alcohol Use History: None Reported Past Drug Use History: None Reported - Past Family History Father History Unknown: Yes Family Medical History: Rheumatoid Arthritis (RA) Additional Family Medical History / Comment(s): Poss MS Mother Family Medical History: Cancer Additional Family Medical History / Comment(s): ovarian,kidney cancer Sister(s) Family Medical History: Diabetes Mellitus General Exam Limitations: no limitations General appearance: alert, in no apparent distress Head exam: Present: atraumatic, normocephalic Eye exam: Present: normal appearance. Absent: scleral icterus, conjunctival injection ENT exam: Present: normal oropharynx Neck exam: Present: normal inspection Respiratory exam: Present: normal lung sounds bilaterally. Absent: respiratory distress, wheezes, rales, rhonchi, stridor Cardiovascular Exam: Present: regular rate, normal rhythm, normal heart sounds. Absent: systolic murmur, diastolic murmur, rubs, gallop GI/Abdominal exam: Present: soft. Absent: distended, tenderness, guarding, rebound Extremities exam: Present: normal inspection, normal capillary refill. Absent: pedal edema, calf tenderness Back exam: Present: normal inspection, paraspinal tenderness. Absent: CVA tenderness (R), CVA tenderness (L), vertebral tenderness Neurological exam: Present: alert, reflexes normal. Absent: motor sensory deficit Skin exam: Present: warm, dry, intact, normal color. Absent: rash Course Vital Signs 06/27/18 20:42 Temperature 98.3 F Pulse Rate 64 Respiratory 20 Rate Blood Pressure 142/73 O2 Sat by Pulse 99 Oximetry Disposition Clinical Impression: Lumbar radicular pain Disposition: HOME SELF-CARE Condition: Good Instructions: Sciatica (ED) Prescriptions: diphenhydrAMINE [Benadryl] 50 mg PO BID PRN #20 capsule PRN Reason: Itching Methocarbamol [Robaxin-750] 750 mg PO TID PRN #30 tablet PRN Reason: pain predniSONE 60 mg PO DAILY #30 tab Is patient prescribed a controlled substance at d/c from ED?: No Referrals: Van Vicente MD [Primary Care Provider] - 1-2 days
[2018-06-27 23:28] VITALS: BP 146/84; RESP 16; TEMP 97.8
== END 2018-06-27 23:27 | disposition home or self-care (01) ==
LOC: EC 20:18
DX: M54.16 Radiculopathy, lumbar region (principal); M25.552 Pain in left hip; M06.9 Rheumatoid arthritis, unspecified; I11.0 Hypertensive heart disease with heart failure; I50.9 Heart failure, unspecified; K21.9 Gastro-esophageal reflux disease without esophagitis; Z87.891 Personal history of nicotine dependence; Z79.899 Other long term (current) drug therapy; Z88.8 Allergy status to other drugs, medicaments and biological substances; Z95.818 Presence of other cardiac implants and grafts
CPT/HCPCS: 73502; 99283; 96372; J2360; J7512

== ENCOUNTER 2018-08-11 20:28 | Observation (INO) | payer BC ==
[2018-08-11] MEDS ORDERED: ONDANSETRON 4 MG/2 ML VIAL IVP STA (21:01)
[2018-08-11 21:08] LABS: Basophils # (A) 0.1 k/uL (0-0.2); Basophils % (A) 1 %; Eosinophils # (A) 0.2 k/uL (0-0.7); Eosinophils % (A) 2 %; HCT 46.3 % (34.0-46.0); HGB 15.3 gm/dL (11.4-16.0); Lymphocytes # (A) 4.6 k/uL (1.0-4.8); Lymphocytes % (A) 44 %; MCH 30.1 pg (25.0-35.0); MCHC 33.1 g/dL (31.0-37.0); MCV 90.8 fL (80.0-100.0); Monocytes # (A) 0.5 k/uL (0-1.0); Monocytes % (A) 5 %; Neutrophils # (A) 4.9 k/uL (1.3-7.7); Neutrophils % (A) 46 %; Platelet Count 306 k/uL (150-450); RDW 12.2 % (11.5-15.5); WBC 10.5 k/uL (3.8-10.6)
[2018-08-11 21:17] LABS: Albumin 4.9 g/dL (3.5-5.0); Calcium 9.4 mg/dL (8.4-10.2); Potassium 4.1 mmol/L (3.5-5.1); Total Bilirubin 0.5 mg/dL (0.2-1.3); Total Protein 7.4 g/dL (6.3-8.2)
[2018-08-11 21:25] LABS: D-Dimer 0.33 mg/L FEU (<0.60); INR 0.9 (<1.2); Partial Thromboplastin Time 23.7 sec (22.0-30.0); Prothrombin Time 9.8 sec (9.0-12.0)
--- NOTE | 2018-08-11 21:27 | XR ---
EXAMINATION TYPE: XR chest 2V DATE OF EXAM: 08/11/2018 COMPARISON: Chest x-ray October 14, 2017. HISTORY: Chest pain into left ribs with nausea. TECHNIQUE: Frontal and lateral views of the chest are obtained. FINDINGS: There is no focal air space opacity, pleural effusion, or pneumothorax seen. The cardiac silhouette size is upper limits of normal. The osseous structures are intact. Cholecystectomy clips are noted on lateral view. IMPRESSION: No acute cardiopulmonary process. No significant change from prior.
--- NOTE | 2018-08-11 23:06 | ED ---
Chest Pain HPI - General Chief Complaint: Chest Pain Stated Complaint: Chest pain, nausea Time Seen by Provider: 08/11/18 20:58 Source: patient Mode of arrival: ambulatory Limitations: no limitations - History of Present Illness Initial Comments: This is a 63-year-old female who presents with complaints of chest pain started about 1 hour prior to arrival she states it was retrosternal heavy tenths feeling [id number] in severity. It feels similar to what she had the past history of pericarditis. Physical history of fibromyalgia and rheumatoid arthritis she states she had a negative echocardiogram recently she did have a carotid ultrasound apparently was some slight blockage in the left recently. She denies any fevers chills nausea vomiting sweats cough or phlegm production. MD Complaint: chest pain - Related Data Home Medications Medication Instructions Recorded Confirmed Etanercept [Enbrel] 50 mg SQ FR 11/04/15 08/11/18 Omeprazole Magnesium [PriLOSEC OTC] 20 mg PO DAILY 10/14/17 08/11/18 diphenhydrAMINE [Benadryl] 25 mg PO HS 10/14/17 08/11/18 Allergies Allergy/AdvReac Type Severity Reaction Status Date / Time pregabalin [From Lyrica] Allergy Hallucinati Verified 08/11/18 21:12 ons cortisone AdvReac Rash/Hives Verified 08/11/18 21:12 Review of Systems ROS Statement: Those systems with pertinent positive or pertinent negative responses have been documented in the HPI. ROS Other: All systems not noted in ROS Statement are negative. EKG Findings - EKG Results: EKG: interpreted by RENETTA, sinus rhythm (Sinus rhythm of 70. We'll 174 QRS duration 88 QT since QTC 42/434 to QA changes compared with an EKG dated showing similar configuration.) Past Medical History Past Medical History: Asthma, Chest Pain / Angina, Heart Failure, Fibromyalgia, GERD/Reflux, Hyperlipidemia, Hypertension, Osteoarthritis (OA), Rheumatoid Arthritis (RA) Additional Past Medical History / Comment(s): DJD. Pericarditis. Gout. RA. Hiatal Hernia. FATTY LIVER. HX UTI'S. History of Any Multi-Drug Resistant Organisms: None Reported Past Surgical History: Appendectomy, Cholecystectomy, Heart Catheterization, Hysterectomy Additional Past Surgical History / Comment(s): ganglion CYSTS AIDAN WRISTS removed. C. CATH 11/07/15, . Past Anesthesia/Blood Transfusion Reactions: Previous Problems w/ Anesthesia Additional Past Anesthesia/Blood Transfusion Reaction / Comment(s): Claustrophobia. HAD RASH AFTER EPIDURAL INJ. Past Psychological History: No Psychological Hx Reported Smoking Status: Former smoker Past Alcohol Use History: None Reported Past Drug Use History: None Reported - Past Family History Father History Unknown: Yes Family Medical History: Rheumatoid Arthritis (RA) Additional Family Medical History / Comment(s): Poss MS Mother Family Medical History: Cancer Additional Family Medical History / Comment(s): ovarian,kidney cancer Sister(s) Family Medical History: Diabetes Mellitus General Exam - General Exam Comments Initial Comments: This is a well-developed well-nourished awake alert oriented 3 female Limitations: no limitations General appearance: alert, in no apparent distress Head exam: Present: atraumatic, normocephalic, normal inspection Eye exam: Present: normal appearance, PERRL, EOMI. Absent: scleral icterus, conjunctival injection, periorbital swelling ENT exam: Present: normal exam, mucous membranes moist Neck exam: Present: normal inspection. Absent: tenderness, meningismus, lymphadenopathy Respiratory exam: Present: normal lung sounds bilaterally. Absent: respiratory distress, wheezes, rales, rhonchi, stridor Cardiovascular Exam: Present: regular rate, normal rhythm, normal heart sounds. Absent: systolic murmur, diastolic murmur, rubs, gallop, clicks GI/Abdominal exam: Present: soft, normal bowel sounds. Absent: distended, tenderness, guarding, rebound, rigid Extremities exam: Present: normal inspection, full ROM, normal capillary refill. Absent: tenderness, pedal edema, joint swelling, calf tenderness Back exam: Present: normal inspection Neurological exam: Present: alert, oriented X3, CN II-XII intact Psychiatric exam: Present: normal affect, normal mood Skin exam: Present: warm, dry, intact, normal color. Absent: rash Course Vital Signs 08/11/18 20:35 Temperature 98.1 F Pulse Rate 77 Respiratory 16 Rate Blood Pressure 149/79 O2 Sat by Pulse 99 Oximetry - Reevaluation(s) Reevaluation #1: 08/11/18 23:05 Patient was placed on a phototypesetting equipment monitor due to chest pain. The initial monitor strip showed 70 heart rate normal sinus rhythm st-t wave changes or no dysrhythmia. Chest Pain MDM - MDM I did review the imaging and report no acute findings. Patient's workup thus far is negative for acute findings however this presentation is suspicious for acute coronary syndrome. She'll be admitted I did discuss case and her and with Dr. Vicente. Disposition Clinical Impression: Unstable angina pectoris, Chest pain Disposition: ADMITTED IP TO THIS [facility] Condition: Stable Referrals: Van Vicente MD [Primary Care Provider] - 1-2 days
[2018-08-11] MEDS ORDERED: HEPARIN SODIUM,PORCINE 5,000 UNIT/ML 1 ML VIAL IV ONE (23:07)
[2018-08-11] MEDS ORDERED: NITROGLYCERIN SL TABS 0.4 MG TAB SUBLINGUAL PRN (23:07)
[2018-08-11] MEDS ORDERED: HEPARIN SOD,PORK IN 0.45% NACL 25,000 UNIT in 0.45% NACL 1 250ML.BAG IV SCH (23:15)
[2018-08-11] MEDS: NITROGLYCERIN OINT 1 INCH/GM PACKET TOPICAL SCH ×2 (23:46→23:47)
[2018-08-12 03:52] LABS: Cholesterol 176 mg/dL (<200); HDL Cholesterol 42 mg/dL (40-60); LDL Cholesterol,Calculated 111 mg/dL (0-99); Triglycerides 117 mg/dL (<150)
[2018-08-12 07:39] VITALS: RESP 18
[2018-08-12] MEDS ORDERED: PANTOPRAZOLE 40 MG TABLET PO SCH (09:00)
[2018-08-12] MEDS ORDERED: ASPIRIN 325 MG TAB PO SCH (09:00)
--- NOTE | 2018-08-12 10:18 | P.CRDCN ---
History of Present Illness History of present illness: This is a pleasant 63-year-old female past medical history significant for rheumatoid arthritis and fibromyalgia. She also states she was diagnosed with pericarditis in the past. She presented to the hospital for symptoms of chest discomfort. 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 There was no radiation to the arm, back, neck or jaw. She denies associated shortness of breath, dizziness, nausea, vomiting, palpitations or diaphoresis. Her symptoms were intermittent in nature with no specific aggravating or alleviating factor. She is seen and examined laying flat in bed in no acute distress and is currently chest pain free. EKG reveals sinus mechanism with no acute ST or T wave abnormalities noted. Chest x-ray is negative for an acute cardiopulmonary process. Laboratory data reviewed, cardiac enzymes negative 3, LDL 111, creatinine 0.88 , potassium 4.1, creatinine 140, magnesium 2.0, d-dimer 0.33, PVC 10.5, hemoglobin 15.3, platelets 306. She takes no daily cardiac medications. She underwent cardiac catheterization October 2015 which revealed normal coronary arteries with no evidence of obstructive disease. Most recent echocardiogram obtained 07/2018 in the office reveals preserved left ventricular systolic function with ejection fraction 65% with trivial circumferential pericardial effusion. At the time of my exam: CONSTITUTIONAL: Denies fever. Denies chills. EYES: Denies blurred vision. Denies vision changes. Denies eye pain. EARS, NOSE, MOUTH & THROAT: Denies headache. Denies sore throat. Denies ear pain. CARDIOVASCULAR: Denies chest pain. Denies shortness of breath. Denies orthopnea. Denies PND. Denies palpitations. RESPIRATORY: Denies cough. GASTROINTESTINAL: Denies abdominal pain. Denies diarrhea. Denies constipation. Denies nausea. Denies vomiting. MUSCULOSKELETAL: Denies myalgias. INTEGUMENTARY: Denies pruitis. Denies rash. NEUROLOGIC: Denies numbness. Denies tingling. Denies weakness. PSYCHIATRIC: Denies anxiety. Denies depression. ENDOCRINE: Denies fatigue. Denies weight change. Denies polydipsia. Denies polyurina. GENITOURINARY: Denies burning, hematuria or urgency with micturation. HEMATOLOGIC: Denies history of anemia. Denies bleeding. Blood pressure 137/73 heart rate 55 afebrile maintaining oxygen saturation on room air GENERAL: This is a 63-year-old female in no apparent distress at the time of my examination. HEENT: Head is atraumatic, normocephalic. Pupils are equal, round. Sclerae anicteric. Conjunctivae are clear. Mucous membranes of the mouth are moist. Neck is supple. There is no jugular venous distention. No carotid bruit is heard. LUNGS: Clear to auscultation no wheezes, rales or rhonchi. No chest wall tenderness is noted on palpation or with deep breathing. HEART: Regular rate and rhythm without murmurs, rubs or gallops. S1 and S2 heard. ABDOMEN: Soft, nontender. Bowel sounds are heard. No organomegaly noted. EXTREMITIES: No evidence of peripheral edema and no calf tenderness noted. VASCULAR: Radial and dorsalis pedis pulses palpated, no evidence of clubbing. NEUROLOGIC: Patient is awake, alert and oriented x3. ASSESSMENT Chest pain, atypical for angina. An acute coronary event has been ruled out. Rheumatoid arthritis Fibromyalgia History of pericarditis Dyslipidemia PLAN An acute coronary event has been rule out. Discontinue heparin infusion. No EKG evidence or clinical symptoms suggestive of pericarditis. Perform stress echocardiogram to assess for stress induced ischemia. If stress test is normal she is stable from a cardiac perspective. Follow up with Dr. Goldstein upon discharge. Thank you kindly for this consultation. Nurse Practitioner note has been reviewed, I agree with a documented findings and plan of care. Patient was seen and examined. Past Medical History Past Medical History: Asthma, Chest Pain / Angina, Heart Failure, Fibromyalgia, GERD/Reflux, Hyperlipidemia, Hypertension, Osteoarthritis (OA), Rheumatoid Arthritis (RA) Additional Past Medical History / Comment(s): DJD. Pericarditis. Gout. RA. Hiatal Hernia. FATTY LIVER. HX UTI'S. History of Any Multi-Drug Resistant Organisms: None Reported Past Surgical History: Appendectomy, Cholecystectomy, Heart Catheterization, Hysterectomy Additional Past Surgical History / Comment(s): ganglion CYSTS AIDAN WRISTS removed. C. CATH 11/07/15, NL. Past Anesthesia/Blood Transfusion Reactions: Previous Problems w/ Anesthesia Additional Past Anesthesia/Blood Transfusion Reaction / Comment(s): Claustrophobia. HAD RASH AFTER EPIDURAL INJ. Past Psychological History: No Psychological Hx Reported Smoking Status: Former smoker Past Alcohol Use History: None Reported Additional Past Alcohol Use History / Comment(s): Smoked ON/OFF FEW YEARS, OCC ONLY, Quit 1996 Past Drug Use History: None Reported - Past Family History Father History Unknown: Yes Family Medical History: Fibromyalgia, Rheumatoid Arthritis (RA) Additional Family Medical History / Comment(s): Poss MS, Parkinsons, and siblings with Fibromyalgia. Mother Family Medical History: Cancer Additional Family Medical History / Comment(s): ovarian,kidney cancer Sister(s) Family Medical History: Diabetes Mellitus Medications and Allergies Home Medications Medication Instructions Recorded Confirmed Type Etanercept [Enbrel] 50 mg SQ FR 11/04/15 08/11/18 History Omeprazole Magnesium [PriLOSEC OTC] 20 mg PO DAILY 10/14/17 08/11/18 History diphenhydrAMINE [Benadryl] 25 mg PO HS 10/14/17 08/11/18 History Allergies Allergy/AdvReac Type Severity Reaction Status Date / Time pregabalin [From Lyrica] Allergy Hallucinati Verified 08/11/18 21:12 ons cortisone AdvReac Rash/Hives Verified 08/11/18 21:12 Physical Exam Vitals: Vital Signs Temp Pulse Pulse Resp BP BP BP 08/12/18 08:00 18 08/12/18 07:20 97.7 F 55 L 18 135/73 08/12/18 03:27 97.8 F 62 16 122/64 08/12/18 03:15 64 16 08/12/18 00:00 97.9 F 63 16 187/91 08/11/18 23:51 63 16 138/81 08/11/18 23:16 17 08/11/18 20:35 98.1 F 77 16 149/79 Pulse Ox 08/12/18 08:00 08/12/18 07:20 98 08/12/18 03:27 98 08/12/18 03:15 08/12/18 00:00 98 08/11/18 23:51 98 08/11/18 23:16 08/11/18 20:35 99 Intake and Output 08/11/18 08/12/18 08/12/18 22:59 06:59 14:59 Intake Total 37.265 Balance 37.265 Intake: Intake, IV Titration 37.265 Amount Heparin Sod,Pork in 0.45% 37.265 NaCl 25,000 unit In 0.45 % NaCl 1 250ml.bag @ 12 UNITS/KG/HR 8.7 mls/hr IV .Q24H [facility] Rx#:[id number] Other: Voiding Method Toilet Toilet # Voids 1 Weight 72.575 kg Results 08/11/18 20:44 08/11/18 20:44 Cardiac Enzymes 08/11/18 08/11/18 08/12/18 Range/Units 20:44 20:44 02:38 AST 25 (14-36) U/L Troponin I <0.012 <0.012 (0.000-0.034) ng/mL 08/12/18 Range/Units 07:46 AST (14-36) U/L Troponin I <0.012 (0.000-0.034) ng/mL Coagulation 08/11/18 08/12/18 Range/Units 20:44 02:48 PT 9.8 (9.0-12.0) sec APTT 23.7 32.5 H (22.0-30.0) sec Lipids 08/12/18 Range/Units 02:38 Triglycerides 117 (<150) mg/dL Cholesterol 176 (<200) mg/dL HDL Cholesterol 42 (40-60) mg/dL CBC 08/11/18 Range/Units 20:44 WBC 10.5 (3.8-10.6) k/uL RBC 5.10 (3.80-5.40) m/uL Hgb 15.3 (11.4-16.0) gm/dL Hct 46.3 H (34.0-46.0) % Plt Count 306 (150-450) k/uL Comprehensive Metabolic Panel 08/11/18 Range/Units 20:44 Sodium 140 (137-145) mmol/L Potassium 4.1 (3.5-5.1) mmol/L Chloride 106 (98-107) mmol/L Carbon Dioxide 26 (22-30) mmol/L BUN 17 (7-17) mg/dL Creatinine 0.88 (0.52-1.04) mg/dL Glucose 109 H (74-99) mg/dL Calcium 9.4 (8.4-10.2) mg/dL AST 25 (14-36) U/L ALT 44 (9-52) U/L Alkaline Phosphatase 70 (38-126) U/L Total Protein 7.4 (6.3-8.2) g/dL Albumin 4.9 (3.5-5.0) g/dL Current Medications Generic Name Dose Route Start Last Admin Trade Name Freq PRN Reason Stop Dose Admin Aspirin 325 mg 08/12/18 09:00 Aspirin PO DAILY DEANA Diphenhydramine HCl 25 mg 08/12/18 21:00 08/12/18 00:47 Benadryl PO 25 mg HS DEANA Administration Nitroglycerin 0.4 mg 08/11/18 23:07 Nitrostat SUBLINGUAL Q5M PRN Chest Pain Pantoprazole Sodium 40 mg 08/12/18 09:00 Protonix PO DAILY DEANA Intake and Output 08/11/18 08/12/18 08/12/18 22:59 06:59 14:59 Intake Total 37.265 Balance 37.265 Intake: Intake, IV Titration 37.265 Amount Heparin Sod,Pork in 0.45% 37.265 NaCl 25,000 unit In 0.45 % NaCl 1 250ml.bag @ 12 UNITS/KG/HR 8.7 mls/hr IV .Q24H [facility] Rx#:[id number] Other: Voiding Method Toilet Toilet # Voids 1 Weight 72.575 kg 08/11/18 20:44 08/11/18 20:44
[2018-08-12 12:21] VITALS: BP 146/66; PULSE 55; TEMP 98.2
--- NOTE | 2018-08-12 14:17 | ECHOS ---
STRESS ECHOCARDIOGRAM INDICATIONS: Chest pain. MEDICATIONS: Enbrel, Benadryl, Prilosec. BASELINE HEART RATE: 65 BASELINE BLOOD PRESSURE: 131/77 MAXIMUM HEART RATE: 135 MAXIMUM BLOOD PRESSURE: 195/65 85% MPHR: 133 100% MPHR: 151 METS: 8.5 MAXIMUM STAGE REACHED: III TOTAL EXERCISE TIME: 7:00 CLINICAL INFORMATION: Baseline rhythm is sinus mechanism, rate of 65, borderline right axis deviation, normal intervals. Baseline blood pressure 131/77 mmHg. Patient exercised on Erlin protocol for 7 minutes reaching peak rate of 135 beats per minute which is equal to 85% maximum predicted heart rate. Peak blood pressure 195/65 mmHg. Test was terminated secondary to fatigue. There was no chest pain. Electrocardiographic monitoring revealed frequent PVCs with episode of bigeminal ventricular ectopic activity. There was no ST-segment changes. FINDINGS: Baseline echocardiogram revealed normal wall thickening and motion. At peak exercise there was normal wall motion augmentation with no hypokinesis or dyskinesis. CONCLUSION: 1. Average exercise tolerance with normal electrocardiographic response to exercise with frequent premature ventricular contractions with episode of bigeminal pattern. 2. Normal stress echocardiogram with no evidence of stress-induced ischemia. MMODL / IJN: [id number] /
--- NOTE | 2018-08-12 17:20 | HP ---
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 She had history of pericarditis. She has tenderness to palpation in her anterior chest wall which is reproducible pain. She had a negative stress echo today and has been cleared by Cardiology. MEDICATIONS: Home medicines include Benadryl, Prilosec, Enbrel for rheumatoid arthritis. ALLERGIES: LYRICA IS AN ALLERGY WELL CORTISONE. REVIEW OF SYMPTOMS: 14-point review of systems negative except for mentioned in HPI. EKG shows sinus rhythm. PAST MEDICAL HISTORY: Asthma, angina, heart failure, fibromyalgia, GERD, dyslipidemia, hypertension, osteoarthritis, rheumatoid arthritis, history of gout, pericarditis. PAST SURGICAL HISTORY: Appendectomy, cholecystectomy, heart catheterization and hysterectomy. FAMILY HISTORY: Father with rheumatoid arthritis. Mom with ovarian kidney cancer. Sister with diabetes mellitus. PHYSICAL EXAMINATION: Temp 98.1, respiratory 14 to 16, pulse 70 to 77, blood pressure 149/79, O2 99% on room air. Cardiovascular: S1, S2. Lungs transmitted upper airway sounds. Hematology: Negative Homans. PSYCH: Fair mood and affect. Vascular: Normal dorsalis pedis, posterior tibial, radial pulse. Skin no rash, excoriation or bruising. Musculoskeletal: Tenderness the patient both palpation anterior chest on the left side. ASSESSMENT: 1. Costochondritis. 2. Angina pectoris ruled out. 3. History of rheumatoid arthritis. Please see further orders. Cleared from Cardiology for discharge. Start anti- inflammatory, some kind for long-term and possible muscle relaxer. Physical therapy and possible muscle relaxer and massage therapy for the diffuse pain down her cervical and lumbar and thoracic spine. MMODL / IJN: [id number] /
[2018-08-12] MEDS ORDERED: diphenhydrAMINE 25 MG CAP PO SCH (21:00)
--- NOTE | 2018-08-16 09:29 | DS ---
DISCHARGE SUMMARY ADMITTED: 08/11/2018. DISCHARGED: 08/12/2018. DISCHARGE MEDICATIONS: 1. Enbrel 50 mg subcu once a week. 2. Benadryl 25 once a week. 3. Omeprazole 20 mg daily. CONDITION: Stable. PROGNOSIS: Guarded. Ambulate as tolerated. HOSPITAL COURSE: The patient came into the hospital with atypical chest pain. Cardiology saw her. Chest x-ray is negative for any abnormalities. Cardiac enzymes are negative x3. Creatinine 0.88, potassium 3.1. Her magnesium is normal. D-dimer negative. Hemoglobin 15.3. Recent echo was normal. Cardiology evaluated her and thought our chest pain was atypical for angina. She had rheumatoid arthritis. Fibromyalgia. History of pericarditis. Heart problems were ruled out by negative troponins. Stress echocardiogram was done which was negative for ischemia at which time patient was thus cleared for discharge to follow up as outpatient. MMLIANL / NAEN: [id number] /
== END 2018-08-12 16:56 | disposition home or self-care (01) ==
LOC: EC 20:28 → 1SOBS 23:06
PROVIDERS: ADMIT Family Medicine; ATTEND Family Medicine
DX: M94.0 Chondrocostal junction syndrome [Tietze] (principal); M79.7 Fibromyalgia; M06.9 Rheumatoid arthritis, unspecified; K21.9 Gastro-esophageal reflux disease without esophagitis; J45.909 Unspecified asthma, uncomplicated; I50.9 Heart failure, unspecified; I11.0 Hypertensive heart disease with heart failure; E78.5 Hyperlipidemia, unspecified; M19.90 Unspecified osteoarthritis, unspecified site; M10.9 Gout, unspecified; K76.0 Fatty (change of) liver, not elsewhere classified; K44.9 Diaphragmatic hernia without obstruction or gangrene; F40.240 Claustrophobia; Z79.899 Other long term (current) drug therapy; Z88.8 Allergy status to other drugs, medicaments and biological substances; Z87.440 Personal history of urinary (tract) infections; Z90.49 Acquired absence of other specified parts of digestive tract; Z86.79 Personal history of other diseases of the circulatory system; Z90.710 Acquired absence of both cervix and uterus; Z87.891 Personal history of nicotine dependence; Z80.51 Family history of malignant neoplasm of kidney; Z83.3 Family history of diabetes mellitus; Z80.41 Family history of malignant neoplasm of ovary; Z82.0 Family history of epilepsy and other diseases of the nervous system; Z82.69 Family history of other diseases of the musculoskeletal system and connective tissue; Z82.61 Family history of arthritis
CPT/HCPCS: 96366; 96376; 96365; 96375; 99285; 36415; 93005; 93351; 85379; 80061; 80053; 82150; 83690; 83735; 84484 ×2; 85025; 85610; 85730 ×2; 71046; G0378 ×2; J1644 ×2; J2405

== ENCOUNTER → 2020-06-28 | Outpatient (CLI) | payer BC ==
--- NOTE | 2020-07-05 09:56 | MM ---
Reason for exam: screening (asymptomatic). Last mammogram was performed 5 years and 4 months ago. History: Patient is postmenopausal. Took estrogen for 30 years beginning at age 22. Physical Findings: A clinical breast exam by your physician is recommended on an annual basis and results should be correlated with mammographic findings. MG Screening Mammo w CAD Bilateral CC and MLO view(s) were taken. Prior study comparison: February 22, 2015, mammogram. February 04, 2014, mammogram. There are scattered fibroglandular densities. There is no discrete abnormality. No significant changes when compared with prior studies. ASSESSMENT: Negative, BI-RAD 1 RECOMMENDATION: Routine screening mammogram of both breasts in 1 year.
== END | disposition home or self-care (01) ==
LOC: RADMAMWWP 08:00
PROVIDERS: ATTEND Family Medicine
DX: Z12.31 Encounter for screening mammogram for malignant neoplasm of breast (principal); Z80.3 Family history of malignant neoplasm of breast
CPT/HCPCS: 77067

== ENCOUNTER 2020-08-30 14:27 | Emergency (ER) | payer BC ==
[2020-08-30 14:43] VITALS: TEMP 97.6
[2020-08-30 15:23] LABS: Basophils # (A) 0.1 k/uL (0-0.2); Basophils % (A) 1 %; Eosinophils # (A) 0.2 k/uL (0-0.7); Eosinophils % (A) 3 %; HCT 43.8 % (34.0-46.0); HGB 15.1 gm/dL (11.4-16.0); Lymphocytes # (A) 3.1 k/uL (1.0-4.8); Lymphocytes % (A) 34 %; MCH 30.9 pg (25.0-35.0); MCHC 34.6 g/dL (31.0-37.0); MCV 89.3 fL (80.0-100.0); Mean Platelet Volume 7.5; Monocytes # (A) 0.6 k/uL (0-1.0); Monocytes % (A) 6 %; Neutrophils % (A) 55 %; Platelet Count 289 k/uL (150-450); RDW 12.1 % (11.5-15.5); WBC 9.1 k/uL (3.8-10.6)
[2020-08-30 15:34] LABS: ALT 19 U/L (4-34); AST 23 U/L (14-36); African American GFR (CKD) >90 (>60 ml/min/1.73 sqM); Albumin 4.7 g/dL (3.5-5.0); Alkaline Phosphatase 78 U/L (38-126); Anion Gap 8 mmol/L; Blood Urea Nitrogen 16 mg/dL (7-17); Calcium 9.4 mg/dL (8.4-10.2); Carbon Dioxide 25 mmol/L (22-30); Chloride 106 mmol/L (98-107); Glucose 100 mg/dL (74-99); Non-African American GFR(CKD) 89 (>60 ml/min/1.73 sqM); Sodium 139 mmol/L (137-145); Total Bilirubin 0.5 mg/dL (0.2-1.3); Total Protein 7.2 g/dL (6.3-8.2)
[2020-08-30 15:43] LABS: Potassium 4.2 mmol/L (3.5-5.1)
--- NOTE | 2020-08-30 17:05 | ED ---
Chest Pain HPI - General Chief Complaint: Chest Pain Stated Complaint: Chest pain Time Seen by Provider: 08/30/20 16:41 Source: patient Mode of arrival: wheelchair Limitations: no limitations - History of Present Illness Initial Comments: Is a 65-year-old female with a history of hypertension who presents emergency department for left-sided chest fluttering and pain. She states that the symptoms started about an hour prior to arrival. She describes a left-sided chest pain as a mild ache that was nonradiating. It was not made worse with anything in particular. She states it was nonexertional. Not pleuritic. Not related to position in any way. She states that she also has intermittent episodes of fluttering in her chest on the left side in the same area. She denied any lightheadedness or syncope. No shortness of breath. No diaphoresis. She states that she did have a little bit nausea earlier in the day however this has subsided. She denies any cough or fever. No lower extremity pain or swelling. She does admit to having a coronary catheterization in 2016 that showed normal coronaries. She has not had any further testing since then. She denies any other acute complaints. - Related Data Home Medications Medication Instructions Recorded Confirmed Omeprazole Magnesium [PriLOSEC OTC] 20 mg PO DAILY 10/14/17 08/30/20 ALPRAZolam [Xanax] 0.25 mg PO HS 08/30/20 08/30/20 Etanercept [Enbrel Sureclick] 50 mg SQ FR 08/30/20 08/30/20 Valsartan [Diovan] 80 mg PO HS 08/30/20 08/30/20 amLODIPine [Norvasc] 2.5 mg PO HS 08/30/20 08/30/20 Allergies Allergy/AdvReac Type Severity Reaction Status Date / Time pregabalin [From Lyrica] Allergy Hallucinati Verified 08/30/20 17:27 ons cortisone AdvReac Rash/Hives Verified 08/30/20 17:27 Review of Systems ROS Statement: Those systems with pertinent positive or pertinent negative responses have been documented in the HPI. ROS Other: All systems not noted in ROS Statement are negative. Past Medical History Past Medical History: Asthma, Chest Pain / Angina, Heart Failure, Fibromyalgia, GERD/Reflux, Hyperlipidemia, Hypertension, Osteoarthritis (OA), Rheumatoid Arthritis (RA) Additional Past Medical History / Comment(s): DJD. Pericarditis. Gout. RA. Hiatal Hernia. FATTY LIVER. HX UTI'S. History of Any Multi-Drug Resistant Organisms: None Reported Past Surgical History: Appendectomy, Cholecystectomy, Heart Catheterization, Hysterectomy Additional Past Surgical History / Comment(s): ganglion CYSTS AIDAN WRISTS removed. C. CATH 11/07/15, NL. Past Anesthesia/Blood Transfusion Reactions: Previous Problems w/ Anesthesia Additional Past Anesthesia/Blood Transfusion Reaction / Comment(s): Claustrophobia. HAD RASH AFTER EPIDURAL INJ. Past Psychological History: No Psychological Hx Reported Smoking Status: Former smoker Past Alcohol Use History: None Reported Past Drug Use History: Marijuana - Past Family History Father History Unknown: Yes Family Medical History: Fibromyalgia, Rheumatoid Arthritis (RA) Additional Family Medical History / Comment(s): Poss MS, Parkinsons, and siblings with Fibromyalgia. Mother Family Medical History: Cancer Additional Family Medical History / Comment(s): ovarian,kidney cancer Sister(s) Family Medical History: Diabetes Mellitus General Exam - General Exam Comments Initial Comments: Constitutional: Awake alert Appears comfortable Head: Normocephalic atraumatic Eyes: no conjunctival injection No scleral icterus EOMI Neck: No JVD Supple Heart: Regular rate rhythm normal S1-S2 no murmurs Lungs: Clear to auscultation bilaterally No wheezing No rales Abdomen: Soft nondistended nontender Extremities: Non edematous DP pulses intact Radial pulses intact Neuro: A&Ox3 No focal neurologic deficits Psych: Appropriate mood and affect Limitations: no limitations Course Vital Signs 08/30/20 08/30/20 08/30/20 14:39 17:05 18:14 Temperature 97.6 F Pulse Rate 69 71 Respiratory 18 16 16 Rate Blood Pressure 159/76 134/81 O2 Sat by Pulse 98 98 Oximetry - Reevaluation(s) Reevaluation #1: EKG showing normal sinus rhythm with a rate of 67. There are no abnormal ST segment changes. There is a T-wave inversion in V2. QTC is 431. Other intervals normal. No ectopy. 08/30/20 17:05 Chest Pain MDM - MDM Is a 65-year-old female who presents emergency department for chest palpitations and mild chest aching. The patient was in no apparent distress on arrival. Vital signs are stable. EKG was unremarkable. Troponin was drawn while she was out in triage which was negative. I repeated 1 at 3 hours is also negative. Chest x-ray was unremarkable. Patient's symptoms had resolved by time I went to reevaluate her. The patient stated that she will would like to go home. Her symptoms could be related to the cold vaccine that she received earlier in the morning however I told her that she needs to have close follow-up with Dr. Vicente as an outpatient. Return emergency Department if she has worsening or changing symptoms. Heart score less than 4. All questions answered. Disposition Clinical Impression: Palpitations Disposition: HOME SELF-CARE Condition: Stable Instructions (If sedation given, give patient instructions): Heart Palpitations (ED) Is patient prescribed a controlled substance at d/c from ED?: No Referrals: Van Vicente MD [Primary Care Provider] - 1-2 days
[2020-08-30 17:06] VITALS: RESP 16
--- NOTE | 2020-08-30 17:49 | XR ---
EXAMINATION TYPE: XR chest 1V portable DATE OF EXAM: 08/30/2020 COMPARISON: 08/11/2018. HISTORY: Shortness of breath. TECHNIQUE: Single frontal view of the chest is obtained. FINDINGS: There is no focal air space opacity, pleural effusion, or pneumothorax seen. The cardiac silhouette size is within normal limits. The osseous structures are intact. IMPRESSION: No acute process.
[2020-08-30 18:15] VITALS: BP 134/81; PULSE 71
[2020-08-30 18:26] LABS: INR 0.9 (<1.2); Partial Thromboplastin Time 22.9 sec (22.0-30.0)
== END 2020-08-30 18:59 | disposition home or self-care (01) ==
LOC: EC 14:27
DX: R00.2 Palpitations (principal); I11.0 Hypertensive heart disease with heart failure; I50.9 Heart failure, unspecified; J45.909 Unspecified asthma, uncomplicated; E78.5 Hyperlipidemia, unspecified; K21.9 Gastro-esophageal reflux disease without esophagitis; Z79.899 Other long term (current) drug therapy; Z87.891 Personal history of nicotine dependence
CPT/HCPCS: 36415; 71045; 80053; 84484; 85025; 85610; 85730; 93005; 99285

== ENCOUNTER → 2020-10-05 | Outpatient (CLI) | payer BC ==
[~2020-10-05] MED LIST: REGADENOSON 0.4 MG/5 ML SYRINGE IV PRN
--- NOTE | 2020-10-05 11:02 | NM ---
EXAMINATION TYPE: NM stress lexiscan cardiolite DATE OF EXAM: 10/05/2020 COMPARISON: NONE HISTORY: Chest pain TECHNIQUE: After the intravenous administration of 9.5 mCi Tc 99m Sestamibi - Cardiolite resting SPE CT images acquired 45 minutes post injection. The patient received 0.4mg Lexiscan, 25.1 mCi Tc 99m Sestamibi - Stress images obtained [address] injection FINDINGS: Review of stress and rest SPECT images demonstrates no distinct perfusion abnormality. Gated analysi s shows normal wall motion with an estimated left ventricular ejection fraction of 63 %. IMPRESSION: No scintigraphic evidence for reversible ischemia.
--- NOTE | 2020-10-05 15:46 | EST ---
EXERCISE STRESS AGE: 65 SEX: Female HT: 5'1" WT: 140 lbs. PROTOCOL: Lexiscan Cardiolite STAGE: N/A DURATION OF EXERCISE: N/A HEART RATE REST: 57 BLOOD PRESSURE REST: 133/75 MAXIMUM HEART RATE ACHIEVED: 107 MAXIMUM BLOOD PRESSURE: 151/75 85% MPHR: 132 100% MPHR: 155 METS: N/A INDICATIONS: Abnormal EKG CLINICAL INFORMATION: Baseline rhythm is sinus mechanism, rate of 57, borderline right axis deviation, T-wave inversion in V1 and V2. Baseline blood pressure 133/75 mmHg. Patient received an injection of Lexiscan. Electrocardiograph monitoring revealed no evidence of diagnostic ischemic ST deviation. Cardiolite was injected per protocol. CONCLUSION: 1. Nondiagnostic electrocardiograph stress testing. 2. Nuclear images will be reported separately. MMODL / IJN: [id number] /
== END | disposition home or self-care (01) ==
LOC: RADNMMAIN 08:05
PROVIDERS: ATTEND Family Medicine
DX: R07.9 Chest pain, unspecified (principal); Z88.8 Allergy status to other drugs, medicaments and biological substances
CPT/HCPCS: 93017; 78452; A9500; J2785

== ENCOUNTER 2021-05-27 11:22 | Emergency (ER) | payer MEDICARE, BC ==
[2021-05-27 11:26] VITALS: BP 157/83; PULSE 68; RESP 16; TEMP 98.1
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
== END 2021-05-27 12:43 | disposition home or self-care (01) ==
LOC: EC 11:22
DX: S16.1XXA Strain of muscle, fascia and tendon at neck level, initial encounter (principal); I11.0 Hypertensive heart disease with heart failure; I50.9 Heart failure, unspecified; M79.7 Fibromyalgia; K21.9 Gastro-esophageal reflux disease without esophagitis; J45.909 Unspecified asthma, uncomplicated; E78.5 Hyperlipidemia, unspecified; M19.90 Unspecified osteoarthritis, unspecified site; F12.90 Cannabis use, unspecified, uncomplicated; Z88.1 Allergy status to other antibiotic agents; Z87.440 Personal history of urinary (tract) infections; Z90.49 Acquired absence of other specified parts of digestive tract; Z90.710 Acquired absence of both cervix and uterus; Z87.891 Personal history of nicotine dependence; V40.5XXA Car driver injured in collision with pedestrian or animal in traffic accident, initial encounter; Y92.410 Unspecified street and highway as the place of occurrence of the external cause
CPT/HCPCS: 70450; 72125; 99283

== ENCOUNTER 2022-03-14 06:59 | Emergency (ER) | payer BC, MEDICARE ==
[2022-03-14 07:33] VITALS: BP 126/77; PULSE 77; RESP 16; TEMP 97.8
[2022-03-14] MEDS ORDERED: IBUPROFEN 800 MG TAB PO STA (07:36)
--- NOTE | 2022-03-14 07:36 | ED ---
General Adult HPI - General Chief complaint: Extremity Injury, Lower Stated complaint: Right foot pain Time Seen by Provider: 03/14/22 07:35 Source: patient, RN notes reviewed, old records reviewed Mode of arrival: ambulatory Limitations: no limitations - History of Present Illness Initial comments: Patient is a 66-year-old female with past medical history remarkable for fibromyalgia, hypertension who presents emergency complaining of right foot pain. It started yesterday. Denies any known trauma. Denies any problems with it previously. Describes it as a swollen, throbbing pain located over the lateral aspect of her right foot. Denies any knee sensory deficits. States it hurts to bear weight. Denies any fevers, chills. Denies any abdominal pain, nausea, vomiting. Has no other acute complaints at this time. Presents for further evaluation of her right foot pain. - Related Data Home Medications Medication Instructions Recorded Confirmed Omeprazole Magnesium [PriLOSEC OTC] 20 mg PO DAILY 10/14/17 08/30/20 ALPRAZolam [Xanax] 0.25 mg PO HS 08/30/20 08/30/20 Etanercept [Enbrel Sureclick] 50 mg SQ FR 08/30/20 08/30/20 Valsartan [Diovan] 80 mg PO HS 08/30/20 08/30/20 amLODIPine [Norvasc] 2.5 mg PO HS 08/30/20 08/30/20 Allergies Allergy/AdvReac Type Severity Reaction Status Date / Time pregabalin [From Lyrica] Allergy Hallucinati Verified 03/14/22 07:33 ons Review of Systems ROS Statement: Those systems with pertinent positive or pertinent negative responses have been documented in the HPI. Review of Systems: CONST: Denies fever EYES: Denies blurry vision ENT: Denies nasal congestion C/V: Denies Chest pain RESP: Denies shortness of breath GI: Denies abdominal pain : Denies dysuria SKIN: Denies rash. MSK: Endorses right foot pain NEURO: Denies headache ROS Other: All systems not noted in ROS Statement are negative. Past Medical History Past Medical History: Asthma, Chest Pain / Angina, Heart Failure, Fibromyalgia, GERD/Reflux, Hyperlipidemia, Hypertension, Osteoarthritis (OA), Rheumatoid Arthritis (RA) Additional Past Medical History / Comment(s): DJD. Pericarditis. Gout. RA. Hiatal Hernia. FATTY LIVER. HX UTI'S. History of Any Multi-Drug Resistant Organisms: None Reported Past Surgical History: Appendectomy, Cholecystectomy, Heart Catheterization, Hysterectomy Additional Past Surgical History / Comment(s): ganglion CYSTS AIDAN WRISTS removed. C. CATH 11/07/15, [place]. Past Anesthesia/Blood Transfusion Reactions: Previous Problems w/ Anesthesia Additional Past Anesthesia/Blood Transfusion Reaction / Comment(s): Claustrophobia. HAD RASH AFTER EPIDURAL INJ. Past Psychological History: No Psychological Hx Reported Smoking Status: Former smoker Past Alcohol Use History: None Reported Past Drug Use History: Marijuana - Past Family History Father History Unknown: Yes Family Medical History: Fibromyalgia, Rheumatoid Arthritis (RA) Additional Family Medical History / Comment(s): Poss MS, Parkinsons, and siblings with Fibromyalgia. Mother Family Medical History: Cancer Additional Family Medical History / Comment(s): ovarian,kidney cancer Sister(s) Family Medical History: Diabetes Mellitus General Exam - General Exam Comments Initial Comments: General: Appears in no acute distress. HEAD: Normal with no signs of head trauma. EYES: EOMI ENT: Hearing grossly intact RESPIRATORY: No respiratory distress C/V: Regular rate and rhythm. Peripheral pulses 2+ and intact throughout. ABD: Nondistended EXT: Reduced range of motion of the right ankle. Swelling located over the dorsal aspect of the right foot laterally running along the extensor tendons and metatarsal bones of the fourth and fifth digit. No warmth. No erythema. No fluctuance. No induration. SKIN: No rashes or lesions observed on exposed skin. NEURO: Alert and oriented 4. No focal sensory strength deficits. Limitations: no limitations Course Vital Signs 03/14/22 07:31 Temperature 97.8 F Pulse Rate 77 Respiratory 16 Rate Blood Pressure 126/77 O2 Sat by Pulse 99 Oximetry Medical Decision Making - Medical Decision Making Based on the patient's presentation and physical exam, I'm concerned for possible injury to the patient's right foot. We will obtain x-rays. She'll be given Motrin. Ice pack will be applied. She was in agreement with this plan. I'm no concern for infectious process at this time. Injury appears to be atraumatic. Possible sprain, as patient is on her feet all day at work. She was in agreement this plan. Vital signs within normal limits. Xray negative for acute injury. Updated the Patient. She has established care with Dr. Ace of ortho, recommended follow up with him if symptoms do not improve. Will provide ortho shoe. Patient has crutches at home. Recommended rest, elevation, icing, and OTC analgesics for home. She was in agreement with this plan. Strict return precautions discussed. Explained she likely has a sprain but should monitor closely. I instructed the patient to follow up with their PCP in the next 1-3 days. I explained that the patient should return to the emergency department if they experience any worsening symptoms. Strict return precautions were discussed with the patient. The patient expressed understanding of these instructions. I answered all questions that the patient had. The patient was discharged home in good condition with their prescriptions and follow up information. Disposition Clinical Impression: Right foot pain Disposition: HOME SELF-CARE Condition: Good Instructions (If sedation given, give patient instructions): Foot Sprain (ED) Is patient prescribed a controlled substance at d/c from ED?: No Referrals: Van Vicente MD [Primary Care Provider] - 1-2 days Sacha Ace MD [STAFF PHYSICIAN] - 1-2 days Time of Disposition: 08:35
--- NOTE | 2022-03-14 08:32 | XR ---
EXAMINATION TYPE: XR foot complete RT DATE OF EXAM: 03/14/2022 COMPARISON: NONE HISTORY: Pain TECHNIQUE: Three views are submitted. FINDINGS: The osseous structures are intact. There is no acute fracture or dislocation. Moderate hypertrophi c arthropathy first MTP. IMPRESSION: 1. No acute fracture or dislocation. If symptoms persist, follow-up exam in 7 to 10 days could be ob tained.
[2022-03-14] MEDS ORDERED: dexAMETHasone 2 MG TAB PO STA (08:34)
== END 2022-03-14 08:59 | disposition home or self-care (01) ==
LOC: EC 06:59
DX: M79.671 Pain in right foot (principal); I10 Essential (primary) hypertension; E78.5 Hyperlipidemia, unspecified; K21.9 Gastro-esophageal reflux disease without esophagitis; I11.0 Hypertensive heart disease with heart failure; I50.9 Heart failure, unspecified; J45.909 Unspecified asthma, uncomplicated; Z88.8 Allergy status to other drugs, medicaments and biological substances; Z87.891 Personal history of nicotine dependence
CPT/HCPCS: 73630; 99283; J8540

== ENCOUNTER 2022-05-19 20:13 | Observation (INO) | payer BC, MEDICARE ==
--- NOTE | 2022-05-19 20:24 | ED ---
General Adult HPI - General Chief complaint: Chest Pain Stated complaint: Chest Pain Time Seen by Provider: 05/19/22 20:19 Source: patient Mode of arrival: EMS Limitations: no limitations - History of Present Illness Initial comments: Patient presents to the ED by ambulance for evaluation. Patient states that she was exerting herself while at work about an hour and a half ago when she developed left-sided chest pressure radiating to her left jaw. Patient states that she had associated dyspnea, nausea and lightheadedness as well. Patient was given aspirin and 2 sublingual nitroglycerins by EMS, and she states that her chest pain has now resolved. Patient denies having any symptoms at this time. Patient denies trauma or injury, fever or chills, headache, focal numbness/weakness/neuro deficit, arm pain, back pain, pleuritic pain, cough or cold symptoms, palpitations, syncope, diaphoresis, vomiting or diarrhea, abdominal pain, bloody or melanotic stool, dysuria or urinary symptoms, leg or calf swelling or pain, or any other symptoms or complaints. - Related Data Home Medications Medication Instructions Recorded Confirmed Omeprazole Magnesium [PriLOSEC OTC] 20 mg PO DAILY 10/14/17 05/19/22 ALPRAZolam [Xanax] 0.25 mg PO HS 08/30/20 05/19/22 Valsartan [Diovan] 80 mg PO HS 08/30/20 05/19/22 amLODIPine [Norvasc] 2.5 mg PO HS 08/30/20 05/19/22 diphenhydrAMINE [Benadryl] 50 mg PO HS 05/19/22 05/19/22 metHOTREXate sodium [Methotrexate] 2.5 mg PO FR 05/19/22 05/19/22 Allergies Allergy/AdvReac Type Severity Reaction Status Date / Time pregabalin [From Lyrica] AdvReac Suicidal Verified 05/19/22 21:27 thoughts Review of Systems ROS Statement: Those systems with pertinent positive or pertinent negative responses have been documented in the HPI. ROS Other: All systems not noted in ROS Statement are negative. Past Medical History Past Medical History: Asthma, Chest Pain / Angina, Heart Failure, Fibromyalgia, GERD/Reflux, Hyperlipidemia, Hypertension, Osteoarthritis (OA), Rheumatoid Arthritis (RA) Additional Past Medical History / Comment(s): DJD. Pericarditis. Gout. RA. Hiatal Hernia. FATTY LIVER. HX UTI'S. History of Any Multi-Drug Resistant Organisms: None Reported Past Surgical History: Appendectomy, Cholecystectomy, Heart Catheterization, Hysterectomy Additional Past Surgical History / Comment(s): ganglion CYSTS AIDAN WRISTS removed. C. CATH 11/07/15, [place]. Past Anesthesia/Blood Transfusion Reactions: Previous Problems w/ Anesthesia Additional Past Anesthesia/Blood Transfusion Reaction / Comment(s): Claustrophobia. HAD RASH AFTER EPIDURAL INJ. Past Psychological History: No Psychological Hx Reported Smoking Status: Former smoker Past Alcohol Use History: None Reported Past Drug Use History: Marijuana - Past Family History Father History Unknown: Yes Family Medical History: Fibromyalgia, Rheumatoid Arthritis (RA) Additional Family Medical History / Comment(s): Poss MS, Parkinsons, and siblings with Fibromyalgia. Mother Family Medical History: Cancer Additional Family Medical History / Comment(s): ovarian,kidney cancer Sister(s) Family Medical History: Diabetes Mellitus General Exam Limitations: no limitations General appearance: alert, in no apparent distress Head exam: Present: atraumatic, normocephalic Eye exam: Present: normal appearance, EOMI ENT exam: Present: mucous membranes moist Neck exam: Present: other (Trachea is in midline) Respiratory exam: Present: normal lung sounds bilaterally. Absent: respiratory distress, wheezes, rales, rhonchi, stridor, chest wall tenderness Cardiovascular Exam: Present: regular rate, normal rhythm, normal heart sounds, other (Normal radial pulses bilaterally) GI/Abdominal exam: Present: soft. Absent: distended, tenderness, guarding Extremities exam: Present: other (Negative Homans sign bilaterally). Absent: tenderness, pedal edema, calf tenderness Neurological exam: Present: alert, oriented X3. Absent: motor sensory deficit Psychiatric exam: Present: normal affect, normal mood Skin exam: Present: warm, dry, intact, normal color Course Vital Signs 05/19/22 05/19/22 20:19 20:57 Temperature 97 F L Pulse Rate 80 Pulse Rate [ 60 [employer] ] Respiratory 16 Rate Blood Pressure 133/71 O2 Sat by Pulse 97 Oximetry - Reevaluation(s) Reevaluation #1: 05/19/22 21:42 Patient continues to deny having any chest pain or symptoms while in the ED. P atient remains alert and breathing comfortable with a normal room air oxygen saturation. Patient and are aware the patient's test results, and patient agrees with hospital admission at this time. 05/19/22 21:57 Case, H&P, test results and EMS management were discussed with Dr. Van Vicente . He accepts hospital admission. He has no further recommendations at this time. EKG Findings - EKG Comments: EKG Findings:: ED physician interpretation: Normal sinus rhythm, ventricular rate of 78 bpm, no ectopy, normal MI and QRS intervals, normal QT interval, normal axis, no ST or T wave abnormality Medical Decision Making - Medical Decision Making Patient's EKG is fairly unremarkable. Patient's initial troponin is negative. Patient has been symptom-free while in the ED. Patient has a Heart Score of 6, and as such, will admit the patient to the hospital for cardiac monitoring, serial troponins and further evaluation. Dr. Van Vicente has accepted hospital admission. - Lab Data Result diagrams: 05/19/22 20:23 05/19/22 20:23 Lab Results 05/19/22 05/19/22 05/19/22 Range/Units 20:23 20:23 20:23 WBC 7.1 (3.8-10.6) k/uL RBC 4.58 (3.80-5.40) m/uL Hgb 14.0 (11.4-16.0) gm/dL Hct 41.6 (34.0-46.0) % MCV 90.9 (80.0-100.0) fL MCH 30.7 (25.0-35.0) pg MCHC 33.7 (31.0-37.0) g/dL RDW 11.9 (11.5-15.5) % Plt Count 331 (150-450) k/uL MPV 8.0 Neutrophils % 61 % Lymphocytes % 29 % Monocytes % 6 % Eosinophils % 3 % Basophils % 0 % Neutrophils # 4.3 (1.3-7.7) k/uL Lymphocytes # 2.0 (1.0-4.8) k/uL Monocytes # 0.4 (0-1.0) k/uL Eosinophils # 0.2 (0-0.7) k/uL Basophils # 0.0 (0-0.2) k/uL PT 10.3 (9.0-12.0) sec INR 1.0 (<1.2) APTT 24.2 (22.0-30.0) sec Sodium 140 (137-145) mmol/L Potassium 3.7 (3.5-5.1) mmol/L Chloride 110 H (98-107) mmol/L Carbon Dioxide 24 (22-30) mmol/L Anion Gap 6 mmol/L BUN 18 H (7-17) mg/dL Creatinine 0.90 (0.52-1.04) mg/dL Est GFR (CKD-EPI)AfAm 77 (>60 ml/min/1.73 sqM) Est GFR (CKD-EPI)NonAf 67 (>60 ml/min/1.73 sqM) Glucose 126 H (74-99) mg/dL Calcium 9.1 (8.4-10.2) mg/dL Magnesium 2.1 (1.6-2.3) mg/dL Total Bilirubin 0.4 (0.2-1.3) mg/dL AST 25 (14-36) U/L ALT 31 (4-34) U/L Alkaline Phosphatase 81 (38-126) U/L Troponin I (0.000-0.034) ng/mL Total Protein 6.5 (6.3-8.2) g/dL Albumin 4.2 (3.5-5.0) g/dL 05/19/22 Range/Units 20:23 WBC (3.8-10.6) k/uL RBC (3.80-5.40) m/uL Hgb (11.4-16.0) gm/dL Hct (34.0-46.0) % MCV (80.0-100.0) fL MCH (25.0-35.0) pg MCHC (31.0-37.0) g/dL RDW (11.5-15.5) % Plt Count (150-450) k/uL MPV Neutrophils % % Lymphocytes % % Monocytes % % Eosinophils % % Basophils % % Neutrophils # (1.3-7.7) k/uL Lymphocytes # (1.0-4.8) k/uL Monocytes # (0-1.0) k/uL Eosinophils # (0-0.7) k/uL Basophils # (0-0.2) k/uL PT (9.0-12.0) sec INR (<1.2) APTT (22.0-30.0) sec Sodium (137-145) mmol/L Potassium (3.5-5.1) mmol/L Chloride (98-107) mmol/L Carbon Dioxide (22-30) mmol/L Anion Gap mmol/L BUN (7-17) mg/dL Creatinine (0.52-1.04) mg/dL Est GFR (CKD-EPI)AfAm (>60 ml/min/1.73 sqM) Est GFR (CKD-EPI)NonAf (>60 ml/min/1.73 sqM) Glucose (74-99) mg/dL Calcium (8.4-10.2) mg/dL Magnesium (1.6-2.3) mg/dL Total Bilirubin (0.2-1.3) mg/dL AST (14-36) U/L ALT (4-34) U/L Alkaline Phosphatase (38-126) U/L Troponin I <0.012 (0.000-0.034) ng/mL Total Protein (6.3-8.2) g/dL Albumin (3.5-5.0) g/dL - Radiology Data Chest x-ray: No acute cardiopulmonary disease/process. Disposition Clinical Impression: Chest pain Disposition: ADMITTED IP TO THIS [facility] Condition: Stable Is patient prescribed a controlled substance at d/c from ED?: No Referrals: Van Vicente MD [Primary Care Provider] - 1-2 days Time of Disposition: 21:58
[2022-05-19 20:54] LABS: Basophils % (A) 0 %; Eosinophils # (A) 0.2 k/uL (0-0.7); Eosinophils % (A) 3 %; HCT 41.6 % (34.0-46.0); Lymphocytes % (A) 29 %; MCH 30.7 pg (25.0-35.0); MCHC 33.7 g/dL (31.0-37.0); MCV 90.9 fL (80.0-100.0); Monocytes # (A) 0.4 k/uL (0-1.0); Monocytes % (A) 6 %; Neutrophils # (A) 4.3 k/uL (1.3-7.7); Neutrophils % (A) 61 %; Platelet Count 331 k/uL (150-450); RBC 4.58 m/uL (3.80-5.40); RDW 11.9 % (11.5-15.5); WBC 7.1 k/uL (3.8-10.6)
--- NOTE | 2022-05-19 20:56 | XR ---
EXAMINATION TYPE: XR chest 1V portable DATE OF EXAM: 05/19/2022 8:47 PM COMPARISON: Chest x-ray 08/30/2020 TECHNIQUE: XR chest 1V portable . CLINICAL INDICATION:Female, 67 years old with history of chest pain; FINDINGS: Lungs/Pleura: There is no evidence of pleural effusion, focal consolidation, or pneumothorax. Pulmonary vascularity: Unremarkable. Heart/mediastinum: Cardiomediastinal silhouette is unremarkable. Musculoskeletal: No acute osseous pathology. IMPRESSION: No acute cardiopulmonary disease/process.
[2022-05-19 21:04] LABS: Albumin 4.2 g/dL (3.5-5.0); Calcium 9.1 mg/dL (8.4-10.2); Magnesium 2.1 mg/dL (1.6-2.3); Potassium 3.7 mmol/L (3.5-5.1); Total Bilirubin 0.4 mg/dL (0.2-1.3); Total Protein 6.5 g/dL (6.3-8.2)
[2022-05-19 21:09] LABS: Partial Thromboplastin Time 24.2 sec (22.0-30.0); Prothrombin Time 10.3 sec (9.0-12.0)
[2022-05-19] MEDS ORDERED: NALOXONE 0.4 MG/ML 1 ML VIAL IV PRN (21:58)
[2022-05-20 03:37] LABS: Basophils # (A) 0.1 k/uL (0-0.2); Basophils % (A) 1 %; Eosinophils # (A) 0.2 k/uL (0-0.7); Eosinophils % (A) 3 %; HCT 40.3 % (34.0-46.0); HGB 13.8 gm/dL (11.4-16.0); Lymphocytes # (A) 2.6 k/uL (1.0-4.8); Lymphocytes % (A) 43 %; MCH 31.5 pg (25.0-35.0); MCHC 34.1 g/dL (31.0-37.0); MCV 92.3 fL (80.0-100.0); Monocytes # (A) 0.4 k/uL (0-1.0); Monocytes % (A) 7 %; Neutrophils # (A) 2.6 k/uL (1.3-7.7); Neutrophils % (A) 44 %; Platelet Count 298 k/uL (150-450); RBC 4.37 m/uL (3.80-5.40)
[2022-05-20 03:47] LABS: Albumin 3.9 g/dL (3.5-5.0); Calcium 8.8 mg/dL (8.4-10.2); Total Bilirubin 0.4 mg/dL (0.2-1.3); Total Protein 6.3 g/dL (6.3-8.2)
[2022-05-20] MEDS ORDERED: diphenhydrAMINE 50 MG CAP PO PRN (10:13)
--- NOTE | 2022-05-20 13:25 | P.CRDCN ---
History of Present Illness Consult date: 05/20/22 Chief complaint: Chest pain History of present illness: This is a very pleasant 67-year-old female patient with a past medical history significant for hypertension presented to the emergency department complaining of chest discomfort. She was in her usual state of health until yesterday when she was at work doing some physical kind of activities when she started experiencing discomfort in the chest. She described the discomfort as a dull k ind of discomfort in the middle of the chest with no radiation to the arms or neck or shoulders or back and no specific symptoms of shortness of breath or dizziness or sweating or any feeling of heart racing or fluttering or presyncope or syncope. The discomfort lasted for about 15-20 minutes. She took nitroglycerin with improvement in the symptoms. For that reason she decided to come to the hospital. She underwent a workup including EKG which showed sinus rhythm was no significant ST or T-wave abnormalities and also she underwent cardiac enzymes which came in to be also unremarkable. The rest of her blood work overall unremarkable. The chest x-ray did not show any acute abnormalities. The patient was seen by our service about a year and a half ago for chest discomfort as well as and at that point she underwent an echo which revealed normal left ventricular systolic function was no significant valvular abnormalities and stress test also came in to be unremarkable. Past Medical History Past Medical History: Asthma, Chest Pain / Angina, Fibromyalgia, GERD/Reflux, Hypertension, Osteoarthritis (OA), Rheumatoid Arthritis (RA) Additional Past Medical History / Comment(s): DJD. Pericarditis. Gout. RA. Hiatal Hernia. FATTY LIVER. HX UTI'S. History of Any Multi-Drug Resistant Organisms: None Reported Past Surgical History: Appendectomy, Cholecystectomy, Heart Catheterization, Hysterectomy Additional Past Surgical History / Comment(s): ganglion CYSTS AIDAN WRISTS removed. C. CATH 11/07/15, [place]. Past Anesthesia/Blood Transfusion Reactions: Previous Problems w/ Anesthesia Additional Past Anesthesia/Blood Transfusion Reaction / Comment(s): Claustrophobia. HAD RASH AFTER EPIDURAL INJ. Past Psychological History: No Psychological Hx Reported Smoking Status: Former smoker Past Alcohol Use History: None Reported Additional Past Alcohol Use History / Comment(s): Smoked ON/OFF FEW YEARS, OCC ONLY, Quit 1996 Past Drug Use History: Marijuana - Past Family History Father History Unknown: Yes Family Medical History: Fibromyalgia, Rheumatoid Arthritis (RA) Additional Family Medical History / Comment(s): Poss MS, Parkinsons, and siblings with Fibromyalgia. Mother Family Medical History: Cancer Additional Family Medical History / Comment(s): ovarian,kidney cancer Sister(s) Family Medical History: Diabetes Mellitus Medications and Allergies Home Medications Medication Instructions Recorded Confirmed Type Omeprazole Magnesium [PriLOSEC OTC] 20 mg PO DAILY 10/14/17 05/19/22 History ALPRAZolam [Xanax] 0.25 mg PO HS 08/30/20 05/19/22 History Valsartan [Diovan] 80 mg PO HS 08/30/20 05/19/22 History amLODIPine [Norvasc] 2.5 mg PO HS 08/30/20 05/19/22 History diphenhydrAMINE [Benadryl] 50 mg PO HS 05/19/22 05/19/22 History metHOTREXate sodium [Methotrexate] 2.5 mg PO FR 05/19/22 05/19/22 History Allergies Allergy/AdvReac Type Severity Reaction Status Date / Time pregabalin [From Lyrica] AdvReac Suicidal Verified 05/19/22 21:27 thoughts Physical Exam Vitals: Vital Signs Temp Pulse Pulse Resp BP BP Pulse Ox 05/20/22 13:18 97.9 F 63 18 125/68 95 05/20/22 07:46 94 L 05/20/22 07:00 98 F 55 L 18 126/69 98 05/20/22 03:01 98.0 F 54 L 18 155/79 99 05/20/22 02:07 97.9 F 80 16 140/78 99 05/20/22 00:09 16 133/70 98 05/19/22 20:57 60 05/19/22 20:19 97 F L 80 16 133/71 97 Intake and Output 05/19/22 05/20/22 05/20/22 22:59 06:59 14:59 Intake Total 95 Balance 95 Intake: Oral 95 Other: # Voids 1 1 Weight 72.575 kg 72.575 kg - Constitutional General appearance: no acute distress - Respiratory Respiratory: bilateral: CTA - Cardiovascular Rhythm: regular Heart sounds: normal: S1, S2 Abnormal Heart Sounds: systolic murmur Results 05/20/22 03:13 05/20/22 03:13 Cardiac Enzymes 05/19/22 05/19/22 05/19/22 Range/Units 20:23 20:23 23:34 AST 25 (14-36) U/L Troponin I <0.012 <0.012 (0.000-0.034) ng/mL 05/20/22 05/20/22 Range/Units 03:13 03:13 AST 24 (14-36) U/L Troponin I <0.012 (0.000-0.034) ng/mL Coagulation 05/19/22 Range/Units 20:23 PT 10.3 (9.0-12.0) sec APTT 24.2 (22.0-30.0) sec CBC 05/19/22 05/20/22 Range/Units 20:23 03:13 WBC 7.1 6.0 (3.8-10.6) k/uL RBC 4.58 4.37 (3.80-5.40) m/uL Hgb 14.0 13.8 (11.4-16.0) gm/dL Hct 41.6 40.3 (34.0-46.0) % Plt Count 331 298 (150-450) k/uL Comprehensive Metabolic Panel 05/19/22 05/20/22 Range/Units 20:23 03:13 Sodium 140 138 (137-145) mmol/L Potassium 3.7 4.0 (3.5-5.1) mmol/L Chloride 110 H 110 H (98-107) mmol/L Carbon Dioxide 24 23 (22-30) mmol/L BUN 18 H 17 (7-17) mg/dL Creatinine 0.90 0.81 (0.52-1.04) mg/dL Glucose 126 H 94 (74-99) mg/dL Calcium 9.1 8.8 (8.4-10.2) mg/dL AST 25 24 (14-36) U/L ALT 31 28 (4-34) U/L Alkaline Phosphatase 81 73 (38-126) U/L Total Protein 6.5 6.3 (6.3-8.2) g/dL Albumin 4.2 3.9 (3.5-5.0) g/dL Current Medications Generic Name Dose Route Start Last Admin Trade Name Freq PRN Reason Stop Dose Admin Alprazolam 0.25 mg 05/20/22 21:00 Alprazolam 0.25 Mg Tab PO HS DEANA Amlodipine Besylate 2.5 mg 05/20/22 21:00 Amlodipine 2.5 Mg Tab PO HS DEANA Diphenhydramine HCl 50 mg 05/20/22 10:13 Diphenhydramine 50 Mg Cap PO HS PRN Insomnia Methotrexate 2.5 mg 05/25/22 09:00 Methotrexate Sodium 2.5 Mg Tab PO FR DEANA Naloxone HCl 0.2 mg 05/19/22 21:58 Naloxone 0.4 Mg/Ml 1 Ml Vial IV Q2M PRN Opioid Reversal Pantoprazole Sodium 40 mg 05/21/22 07:30 Pantoprazole 40 Mg Tablet PO AC-BRKFST DEANA Valsartan 80 mg 05/20/22 21:00 Valsartan 80 Mg Tab PO HS DEANA Intake and Output 05/19/22 05/20/22 05/20/22 22:59 06:59 14:59 Intake Total 95 Balance 95 Intake: Oral 95 Other: # Voids 1 1 Weight 72.575 kg 72.575 kg 05/20/22 03:13 05/20/22 03:13 Assessment and Plan Assessment: Assessment #1 atypical chest discomfort #2 systemic hypertension Plan #1 acute coronary event was ruled out #2 Rule out severe CAD. I'm going to obtain a stress test #3 Follow-up with the patient
[2022-05-20] MEDS ORDERED: VALSARTAN 80 MG TAB PO SCH (21:00)
[2022-05-20] MEDS ORDERED: ALPRAZolam 0.25 MG TAB PO SCH (21:00)
[2022-05-20] MEDS ORDERED: amLODIPine 2.5 MG TAB PO SCH (21:00)
[2022-05-20] MEDS ORDERED: RX INFO: IV CONTRAST WAS GIVEN 1 EACH MISC MISCELLANE PRN (22:45)
--- NOTE | 2022-05-20 23:47 | CT ---
EXAMINATION TYPE: CT chest w con DATE OF EXAM: 05/20/2022 COMPARISON: HISTORY: CHEST PAIN CT DLP: 329.9 mGycm Automated exposure control for dose reduction was used. CONTRAST: Performed with IV Contrast, patient injected with 100 mL of Isovue 300. Images obtained from the thoracic inlet to the diaphragm with the IV contrast. There is some mild atelectasis right posterior lung base. Heart size is normal. No pericardial effusi on. There are no hilar masses. There are 1 cm right bronchial lymph nodes. No mediastinal adenopathy. Thoracic aorta is intact. No aneurysm. There is some spurring in the thoracic spine. No compression fracture. Sternum is intact. The upper a bdominal soft tissues are intact. IMPRESSION: There is some right lower lobe linear infiltrate and atelectasis. Normal heart. No evidence of pulmon margarita embolism. Small right bronchial lymph nodes are likely inflammatory.
--- NOTE | 2022-05-20 23:51 | CT ---
EXAMINATION TYPE: CT thoracic spine wo con DATE OF EXAM: 05/20/2022 COMPARISON: None HISTORY: THORACIC NEURITIS CT DLP: 864.5 mGycm Automated exposure control for dose reduction was used. Images obtained from T1 to T12 with no contrast. The thoracic vertebra have normal alignment. There is mild spurring anteriorly in the mid and lower t horacic spine. No compression fracture. Moderate spondylitic changes in the lower cervical spine from C4 to C7. There is no thoracic paraspinal mass. Posterior elements are intact. IMPRESSION: Mild spondylotic changes in the lower thoracic spine. No fracture. Moderate spondylotic changes in th e lower cervical spine.
--- NOTE | 2022-05-21 01:23 | HP ---
HISTORY AND PHYSICAL HISTORY OF PRESENT ILLNESS: A 67-year-old white female came to the hospital with chest pain, relieved by 1 nitroglycerin. to assess sharp pleuritic-type pain in the middle of her chest. She thought it was similar to the pericarditis she has had in the past. She has been getting some atypical discomfort in her chest. She has history of COPD and breathing difficulties and possibly breathing in some fumes at work. EKG shows nonspecific ST changes. Chest x-ray is negative. D-dimer is negative. A year and a half ago, she had a normal echo. PAST MEDICAL HISTORY: She has rheumatoid arthritis, asthma, COPD, fibromyalgia, GERD, hypertension, osteoarthritis, rheumatoid arthritis. She has history of claustrophobia, ex-smoker. FAMILY HISTORY: Mother had cancer of ovarian and kidney. Sister with diabetes mellitus. Father, fibromyalgia, rheumatoid arthritis. HOME MEDICINES: 1. Omeprazole 20 daily. 2. Xanax 0.25 q.h.s. 3. Diovan 80 q.h.s. 4. Amlodipine 2.5 daily. 5. Benadryl 50 q.h.s. 6. Methotrexate one 2.5 mg tablet daily. ALLERGIES: Pregabalin. PHYSICAL EXAMINATION: VITAL SIGNS: Temperature is 98 to 97, blood pressure 130s to 140s over 70s, O2 97-99, pulse 50s to 60s. CARDIOVASCULAR: S1, S2. LUNGS: Scattered wheeze and rhonchi. HEMATOLOGY: Negative Homans. PSYCH: Fair mood and affect. NEUROLOGIC: Alert and oriented x3. MUSCULOSKELETAL: She has tenderness to palpation mid thoracic paraspinal muscles, radiating around her ribs. NEUROLOGIC: Alert and oriented x3. VASCULAR: Negative Homans. PROGNOSIS: Guarded. Get Cardiology to see her. Do CAT scan of the chest. White count 6, hemoglobin 13.8, hypertension. Negative troponins x3. Get a stress test. Possible repeat echo and CT of the chest. Prognosis guarded. MMODL / IJN: [id number] /
[2022-05-21] MEDS ORDERED: PANTOPRAZOLE 40 MG TABLET PO SCH (07:30)
[2022-05-21 09:04] VITALS: RESP 14
--- NOTE | 2022-05-21 10:12 | P.PN ---
Subjective Progress Note Date: 05/21/22 History of present illness: This is a very pleasant 67-year-old female patient with a past medical history significant for hypertension presented to the emergency department complaining of chest discomfort. She was in her usual state of health until yesterday when she was at work doing some physical kind of activities when she started experiencing discomfort in the chest. She described the discomfort as a dull kind of discomfort in the middle of the chest with no radiation to the arms or neck or shoulders or back and no specific symptoms of shortness of breath or dizziness or sweating or any feeling of heart racing or fluttering or presyncope or syncope. The discomfort lasted for about 15-20 minutes. She took nitroglycerin with improvement in the symptoms. For that reason she decided to come to the hospital. She underwent a workup including EKG which showed sinus rhythm was no significant ST or T-wave abnormalities and also she underwent cardiac enzymes which came in to be also unremarkable. The rest of her blood work overall unremarkable. The chest x-ray did not show any acute abn ormalities. The patient was seen by our service about a year and a half ago for chest discomfort as well as and at that point she underwent an echo which revealed normal left ventricular systolic function was no significant valvular abnormalities and stress test also came in to be unremarkable. 05/21 Patient is scheduled today for stress test and echocardiogram. D-dimer 0.58. TSH 4.660. residential monitor sinus rhythm. CT of the thoracic spine showed mild spondylotic changes of the lower thoracic spine. No fracture. Moderate spondylotic changes in the lower cervical spine CT of the chest revealed right lower lobe linear infiltrate and atelectasis. Normal heart. No evidence of pulmonary embolism. Small right bronchial lymph nodes are likely inflammatory. Physical examination: Gen: This is a 67-year-old female, resting in bed appears to be comfortable VS: Reviewed HEENT: Head is atraumatic, normocephalic. Pupils equal, round. Sclerae is anicteric. NECK: Supple. No JVD. LUNGS: Clear to auscultation. No wheezes or rhonchi. No intercostal retractions. HEART: Regular rate and rhythm. Systolic murmur. ABDOMEN: Soft. Bowel sounds are present. No masses. No tenderness. EXTREMITIES: No pedal edema. No calf tenderness. NEUROLOGICAL: Patient is awake, alert and oriented x3. Assessment: #1 atypical chest discomfort #2 systemic hypertension Plan #1 acute coronary event was ruled out #2 Rule out severe CAD. I'm going to obtain a stress test #3 Obtain 2-D echocardiogram and Doppler study to assess cardiac structure and function If stress test is within normal limits, patient is cleared from cardiology for discharge home with planned follow-up in the office. Nurse practitioner note has been reviewed, I agree with documented findings and plan of care. Patient was seen and examined. Objective - Vital Signs Vital signs: Vital Signs Temp 97.9 F 05/21/22 02:10 Pulse 60 05/21/22 02:10 Resp 17 05/21/22 02:10 BP 157/80 05/21/22 02:10 Pulse Ox 99 05/21/22 02:10 FiO2 Intake & Output 05/20/22 05/21/22 05/21/22 18:59 06:59 18:59 Intake Total 215 500 Balance 215 500 Intake: Oral 215 500 Other: Voiding Method Toilet # Voids 1 1 - Labs CBC & Chem 7: 05/20/22 03:13 05/20/22 03:13
--- NOTE | 2022-05-21 12:35 | CA ---
Stress Echo Report Merry Rajan Age: 67 Gender: F : 1955 Exam Date: 05/21/2022 11:37 Exam Location: [place] [facility] Ht (in): 61 Wt (lb): 160 Ordering Physician: Gregory Goldstein MD ([id number]) Referring Physician: ESTEBAN, Cook Chill Technician: JAQUELIN Technologist Procedure CPT: Indication: Chest Pain ICD-9 Codes: Rhythm: Patient History: Cardiac Medications: Medications in past 24 hours: Contrast: Stress Results Protocol: Erlin Total dose(mL): Exercise Duration (min:sec): 6:[address] Depression (mm): Angina Score: Bloom Score: METS: 7.9 Resting HR: 75 Resting BP: 141 / 81 Peak HR: 144 Peak BP: 202 / 61 Max Predicted HR: 153 94 % Max Predicted HR Target HR: 130 Double Product: [id number] Stress Summary: BP Response: Reason for Termination: MAX EXERTION/TARGET HR Cardiac Symptoms: CHEST PAIN IN RECOVERY,HEADACHE ECG Analysis Resting ECG: Normal sinus rhythm normal axis normal intervals Stress ECG: Patient exercised on Erlin protocol for a total of 6 and half minutes achieving 8 mets 85% of predicted maximal heart rate without chest pain or diagnostic ST segment depression Arrhythmia: Echo Analysis Resting Echo: Normal left ventricular size wall motion systolic function Peak Echo Analysis: Normal hyperdynamic response of all symptoms myocardium noted MEASUREMENTS (Male/Female) Normal Values CONCLUSIONS Average exercise tolerance Negative stress test by EKG criteria Negative stress echo Dr. Prince Wright MD (Electronically Signed) Final Date: 21 May 2022 12:34
[2022-05-21 12:49] VITALS: BP 120/69; PULSE 91; TEMP 98.2
--- NOTE | 2022-05-21 16:22 | CA ---
Transthoracic Echo Report Name: Merry Rajan Age: 67 Gender: F : 1955 Exam Date: 05/21/2022 12:03 Exam Location: [place] [facility] Ht (in): 61 Wt (lb): 160 Ordering Physician: Van Vicente MD Attending/Referring Phys: Clinical Consultant Stacie Nazario RDCS Procedure CPT: Indications: Chest Pain Cardiac Hx: Technical Quality: Fair Contrast 1: Total Dose (mL): Contrast 2: Total Dose (mL): MEASUREMENTS (Male / Female) Normal Values 2D ECHO LV Diastolic Diameter PLAX 3.3 cm 4.2 - 5.9 / 3.9 - 5.3 cm LV Systolic Diameter PLAX 2.2 cm IVS Diastolic Thickness 1.0 cm 0.6 - 1.0 / 0.6 - 0.9 cm LVPW Diastolic Thickness 0.9 cm 0.6 - 1.0 / 0.6 - 0.9 cm LV Relative Wall Thickness 0.6 RV Internal Dim ED PLAX 2.2 cm LA Volume 35.5 cm??? 18 - 58 / 22 - 52 cm??? M-MODE Aortic Root Diameter MM 2.4 cm LA Systolic Diameter MM 3.3 cm LA Ao Ratio MM 1.3 AV Cusp Separation MM 1.6 cm DOPPLER AV Peak Velocity 152.7 cm/s AV Peak Gradient 9.3 mmHg AV Mean Velocity 106.4 cm/s AV Mean Gradient 5.2 mmHg AV Velocity Time Integral 29.6 cm LVOT Peak Velocity 143.8 cm/s LVOT Peak Gradient 8.3 mmHg MV Area PHT 3.4 cm??? Mitral E Point Velocity 72.6 cm/s Mitral A Point Velocity 79.4 cm/s Mitral E to A Ratio 0.9 MV Deceleration Time 225.4 ms TR Peak Velocity 232.6 cm/s TR Peak Gradient 21.6 mmHg Right Ventricular Systolic Press 25.1 mmHg FINDINGS Left Ventricle Normal left ventricular systolic function with no obvious regional wall motion abnormalities. Left ventricular cavity size normal. Left ventricular ejection fraction is estimated at 55 %. Right Ventricle Normal right ventricular size and function. Right Atrium Normal right atrial size. Left Atrium Normal left atrial size. Mitral Valve Structurally normal mitral valve. Trace mitral regurgitation. Aortic Valve No aortic valve stenosis or regurgitation. Tricuspid Valve Mild tricuspid regurgitation. Pulmonic Valve Trace pulmonic regurgitation. Pericardium No pericardial effusion. Aorta Normal size aortic root and proximal ascending aorta. CONCLUSIONS Normal LV systolic function Previewed by: Dr. Prince Wright MD (Electronically Signed) Final Date: 21 May 2022 16:22
[2022-05-25] MEDS ORDERED: metHOTREXate sodium 2.5 MG TAB PO SCH (09:00)
== END 2022-05-21 18:55 | disposition home or self-care (01) ==
LOC: EC 20:13 → 6NMEDSUR 21:59
PROVIDERS: ADMIT Family Medicine; ATTEND Family Medicine
DX: R07.89 Other chest pain (principal); I11.0 Hypertensive heart disease with heart failure; I50.9 Heart failure, unspecified; M79.7 Fibromyalgia; K21.9 Gastro-esophageal reflux disease without esophagitis; E78.5 Hyperlipidemia, unspecified; M10.9 Gout, unspecified; K76.0 Fatty (change of) liver, not elsewhere classified; M06.9 Rheumatoid arthritis, unspecified; J44.9 Chronic obstructive pulmonary disease, unspecified; M54.14 Radiculopathy, thoracic region; J98.11 Atelectasis; I37.1 Nonrheumatic pulmonary valve insufficiency; I08.1 Rheumatic disorders of both mitral and tricuspid valves; Z90.49 Acquired absence of other specified parts of digestive tract; Z79.899 Other long term (current) drug therapy; Z90.710 Acquired absence of both cervix and uterus; Z87.440 Personal history of urinary (tract) infections; Z87.891 Personal history of nicotine dependence; Z80.51 Family history of malignant neoplasm of kidney; Z80.41 Family history of malignant neoplasm of ovary; Z83.3 Family history of diabetes mellitus; Z82.61 Family history of arthritis
CPT/HCPCS: 99285; 36415; 94760 ×2; 93005; 93306; 93351; 85379; 83880; 80053 ×2; 84443; 83735; 84484 ×2; 85025 ×2; 85610; 85730; 84145; 71045; 72128; 71260; G0378 ×3; J0696; Q9967

== ENCOUNTER → 2022-06-14 | Outpatient (CLI) | payer BC, MEDICARE ==
--- NOTE | 2022-06-14 10:06 | BD ---
EXAMINATION TYPE: Axial Bone Density DATE OF EXAM: 06/14/2022 COMPARISON: BASELINE CLINICAL HISTORY: 67 years year old Female. ICD-10 CODE: Z78.0 asymptomatic Height: 59" Weight: 154.9 FRAX RISK QUESTIONS: Alcohol (3 or more units per day): NO Family History (Parent hip fracture): NO Glucocorticoids (More than 3mos): NO (Ex: prednisone, prednisolone, methylprednisolone, dexamethasone, and hydrocortisone). History of Fracture in Adulthood: NO Secondary Osteoporosis: 1. Type 1 Diabetes: NO 2. Hyperthyroidism: NO 3. Menopause before 45: YES, HYSTERECTOMY AGE 22 4. Malnutrition: NO 5. Chronic liver disease: NO Rheumatoid Arthritis: YES Current Tobacco Use: NO RISK FACTORS HISTORY OF: Hip Fracture (Right/Left): NO Spine Fracture: NO History of Wrist Fracture: NO Surgery to Spine/Hip(right/left)/Wrist (right/left): YES, CYSTS REMOVED BILATERAL WRISTS When: OVER 20 YEARS AGO Family History of Osteoporosis: NO Active: YES Diet low in dairy products/other sources of calcium: YES Postmenopausal woman: YES Lost more than 2 inches in height since high school: YES Frequent falls: NO Poor Health: [facility] Hyperparathyroidism: NO Adrenal Insufficiency: NO MEDICATIONS: Prednisone or other steroids: NO Thyroid Medications: NO Osteoporosis Medications: Additional Medications: METHOTREXATE, BLOOD PRESSURE MEDS, REFLUX MEDS, ANXIETY MEDS Additional History: DEGENERATIVE DISC DISEASE OF LUMBAR SPINE EXAM MEASUREMENTS: Bone mineral densitometry was performed using the [employer]. Bone mineral density as measured about the Lumbar spine is: ----- L1-L4(G/cm2): 1.103 T Score Values are as follows: ----- L1: -0.7 ----- L2: -1.0 ----- L3: -0.3 ----- L4: -0.5 ----- L1-L4: -0.6 BASELINE Bone mineral density about the R hip (g/cm2): 0.895 Bone mineral density about the L hip (g/cm2): 0.852 T Score values are as follows: -----R Neck: -1.0 -----L Neck: -1.3 -----R Total: -0.6 -----L Total: -0.9 BASELINE FRAX%s: The graph provided illustrates a 11.2% chance for a major osteoporotic fx and a 1.3% chance f or the hips probability for fx in 10 years time. IMPRESSION: Osteopenia (T Score between -2.5 and -1). There is slightly increased risk of fracture and the patient may be considered for treatment. Re-Screen 2-5 years. NOTE: T-SCORE=SD OF THE YOUNG ADULT MEAN.
== END | disposition home or self-care (01) ==
LOC: RADBDWWP 09:04
PROVIDERS: ATTEND Family Medicine
DX: M85.89 Other specified disorders of bone density and structure, multiple sites (principal); Z78.0 Asymptomatic menopausal state
CPT/HCPCS: 77080

== ENCOUNTER → 2022-08-28 | Outpatient (CLI) | payer BC, MEDICARE ==
--- NOTE | 2022-08-29 08:02 | MM ---
Reason for Exam: Screening (asymptomatic). Last mammogram was performed 2 year(s) and 2 month(s) ago. Patient History: Menarche at age 13. First Full-Term at age 17. Hysterectomy at age 22. Postmenopausal. Estrogen for 30 years from age 22 until age 52. Risk Values: Faye 5 year model risk: 1.2%. NCI Lifetime model risk: 4.2%. Prior Study Comparison: 02/04/2014 Screening Mammogram, Unknown. 02/22/2015 Screening Mammogram, Unknown. 06/28/2020 Bilateral Screening Mammogram, [facility]. Tissue Density: The breast tissue is heterogeneously dense. This may lower the sensitivity of mammography. Findings: Analyzed By CAD. There is no suspicious group of microcalcifications or new suspicious mass in either breast. Overall Assessment: Negative, BI-RAD 1 Management: Screening Mammogram of both breasts in 1 year. A clinical breast exam by your physician is recommended on an annual basis and results should be correlated with mammographic findings. Electronically signed and approved by: Tomás Salcido M.D. Radiologis
== END | disposition home or self-care (01) ==
LOC: RADMAMWWP 10:33
PROVIDERS: ATTEND Family Medicine
DX: Z12.31 Encounter for screening mammogram for malignant neoplasm of breast (principal); Z78.0 Asymptomatic menopausal state
CPT/HCPCS: 77063; 77067

== ENCOUNTER 2023-04-19 01:16 | Emergency (ER) | payer BC, MEDICARE ==
[2023-04-19 01:32] VITALS: RESP 16; TEMP 97.8
[2023-04-19] MEDS ORDERED: ETODOLAC 400 MG TAB PO STA (01:43)
[2023-04-19] MEDS ORDERED: HYDROmorphone 1 MG/ML 1 ML SYRINGE IM STA (01:43)
[2023-04-19] MEDS ORDERED: dexAMETHasone 2 MG TAB PO STA (01:43)
--- NOTE | 2023-04-19 01:44 | ED ---
Extremity Problem HPI - General Chief complaint: Extremity Problem,Nontraumatic Stated complaint: Right knee pain Time Seen by Provider: 04/19/23 01:35 Source: patient, RN notes reviewed, old records reviewed Mode of arrival: ambulatory Limitations: no limitations - History of Present Illness Initial comments: This is a 67-year-old female to the emergency department to complain of right knee pain. This patient presents today for evaluation regards to right knee pain significant right knee pain and swelling secondary to arthritis with history of rheumatoid arthritis. Patient also has history of slight ligament tear in the right knee. No new recent trauma or complaints otherwise, patient does suffer from arthritis or rheumatoid arthritis and does get joint swelling MD Complaint: extremity pain, extremity swelling, joint pain, other (Right knee) -: days(s) Location: right, knee -: Yes arthralgia Radiation: proximal, distal Severity scale (1-10): 8 Quality: aching, sharp Consistency: constant Improves with: nothing Worsens with: weight bearing, walking Associated Symptoms: denies other symptoms - Related Data Home Medications Medication Instructions Recorded Confirmed Omeprazole Magnesium [PriLOSEC OTC] 20 mg PO DAILY 10/14/17 05/19/22 ALPRAZolam [Xanax] 0.25 mg PO HS 08/30/20 05/19/22 Valsartan [Diovan] 80 mg PO HS 08/30/20 05/19/22 amLODIPine [Norvasc] 2.5 mg PO HS 08/30/20 05/19/22 diphenhydrAMINE [Benadryl] 50 mg PO HS 05/19/22 05/19/22 metHOTREXate sodium 2.5 mg PO FR 05/19/22 05/19/22 Allergies Allergy/AdvReac Type Severity Reaction Status Date / Time pregabalin [From Lyrica] AdvReac Suicidal Verified 04/19/23 01:19 thoughts Review of Systems ROS Statement: Those systems with pertinent positive or pertinent negative responses have been documented in the HPI. ROS Other: All systems not noted in ROS Statement are negative. Past Medical History Past Medical History: Asthma, Chest Pain / Angina, Fibromyalgia, GERD/Reflux, Hypertension, Osteoarthritis (OA), Rheumatoid Arthritis (RA) Additional Past Medical History / Comment(s): DJD. Pericarditis. Gout. RA. Hiatal Hernia. FATTY LIVER. HX UTI'S. History of Any Multi-Drug Resistant Organisms: None Reported Past Surgical History: Appendectomy, Cholecystectomy, Heart Catheterization, Hysterectomy Additional Past Surgical History / Comment(s): ganglion CYSTS AIDAN WRISTS removed. C. CATH 11/07/15, [place]. Past Anesthesia/Blood Transfusion Reactions: Previous Problems w/ Anesthesia Additional Past Anesthesia/Blood Transfusion Reaction / Comment(s): Claustrophobia. HAD RASH AFTER EPIDURAL INJ. Past Psychological History: No Psychological Hx Reported Smoking Status: Former smoker Past Alcohol Use History: None Reported Past Drug Use History: Marijuana - Past Family History Father History Unknown: Yes Family Medical History: Fibromyalgia, Rheumatoid Arthritis (RA) Additional Family Medical History / Comment(s): Poss MS, Parkinsons, and siblings with Fibromyalgia. Mother Family Medical History: Cancer Additional Family Medical History / Comment(s): ovarian,kidney cancer Sister(s) Family Medical History: Diabetes Mellitus General Exam Limitations: no limitations General appearance: alert, in no apparent distress Head exam: Present: atraumatic, normocephalic, normal inspection Eye exam: Present: normal appearance, PERRL, EOMI. Absent: scleral icterus, conjunctival injection, periorbital swelling ENT exam: Present: normal exam, mucous membranes moist Neck exam: Present: normal inspection. Absent: tenderness, meningismus, lymphadenopathy Respiratory exam: Present: normal lung sounds bilaterally. Absent: respiratory distress, wheezes, rales, rhonchi, stridor Cardiovascular Exam: Present: regular rate, normal rhythm, normal heart sounds. Absent: systolic murmur, diastolic murmur, rubs, gallop, clicks GI/Abdominal exam: Present: soft, normal bowel sounds. Absent: distended, tenderness, guarding, rebound, rigid Extremities exam: Present: normal inspection, full ROM, normal capillary refill. Absent: tenderness, pedal edema, joint swelling, calf tenderness Back exam: Present: normal inspection Neurological exam: Present: alert, oriented X3, CN II-XII intact Psychiatric exam: Present: normal affect, normal mood Skin exam: Present: warm, dry, intact, normal color. Absent: rash Course Vital Signs 04/19/23 04/19/23 04/19/23 01:18 02:42 03:49 Temperature 97.8 F Pulse Rate 78 75 72 Respiratory 16 16 16 Rate Blood Pressure 171/76 160/75 145/74 O2 Sat by Pulse 98 94 L 97 Oximetry - Reevaluation(s) Reevaluation #1: 04/19/23 01:56 Medical records reviewed Reevaluation #2: 04/19/23 Patient symptoms are improved here in the ER able to ambulate Reevaluation #3: 04/19/23 Patient informed of results and questions answered prefers discharged Reevaluation #4: 04/19/23 01:56 Was pt. sent in by a medical professional or institution ([facility] [place], BLOW MOLDING MACHINE OPERATOR, urgent care, hospital, or shelter...) When possible be specific @ -no Did you speak to anyone other than the patient for history (EMS, parent, family, police, friend...)? What history was obtained from this source @ -no Did you review nursing and triage notes (agree or disagree)? Why? @ -agree Are old charts reviewed (outside hosp., previous admission, EMS record, old EKG, old radiological studies, urgent care reports/EKG's, shelter records)? Report findings @ -yes Differential Diagnosis (chest pain, altered mental status, abdominal pain women, abdominal pain men, vaginal bleeding, weakness, fever, dyspnea, syncope, headache, dizziness, GI bleed, back pain, seizure, CVA, palpatations, mental health, musculoskeletal)? @ -prior EKG interpreted by me (3pts min.). @ -no X-rays interpreted by me (1pt min.). @ -yes CT interpreted by me (1pt min.). @ -no U/S interpreted by me (1pt. min.). @ -no What testing was considered but not performed or refused? (CT, X-rays, U/S, labs)? Why? @ -none What meds were considered but not given or refused? Why? @ -none Did you discuss the management of the patient with other professionals (professionals i.e. [facility] [place], BLOW MOLDING MACHINE OPERATOR, lab, RT, psych nurse, social welfare clerk, spotter driver, teacher, public safety officer, immigration case worker)? Give summary @ -no Was smoking cessation discussed for >3mins.? @ -no Was critical care preformed (if so, how long)? @ -no Were there social determinants of health that impacted care today? How? (Homelessness, low income, unemployed, alcoholism, drug addiction, transportation, low edu. Level, literacy, decrease access to med. care, correction, rehab)? @ -none Was there de-escalation of care discussed even if they declined (Discuss DNR or withdrawal of care, Hospice)? DNR status @ -no What co-morbidities impacted this encounter? (DM, HTN, Smoking, COPD, CAD, Cancer, CVA, ARF, Chemo, Hep., AIDS, mental health diagnosis, sleep apnea, morbid obesity)? @ -none Was patient admitted / discharged? Hospital course, mention meds given and route, prescriptions, significant lab abnormalities, going to OR and other pertinent info. @ - 67 female to the emergency department with knee pain knee effusion knee injury. X-rays otherwise negative patient will follow-up with orthopedics regarding knee effusion Discharged Undiagnosed new problem with uncertain prognosis? @ -no Drug Therapy requiring intensive monitoring for toxicity (Heparin, Nitro, Insulin, Cardizem)? @ -no Were any procedures done? @ -no Diagnosis/symptom? @ -Atherectomy effusion Acute, or Chronic, or Acute on Chronic? @ -Acute Uncomplicated (without systemic symptoms) or Complicated (systemic symptoms)? @ -Complicated Side effects of treatment? @ -no Exacerbation, Progression, or Severe Exacerbation? @ -exacerbation Poses a threat to life or bodily function? How? (Chest pain, [place], [place], pneumonia, PE, COPD, DKA, ARF, appy, cholecystitis, CVA, Diverticulitis, Homicidal, Suicidal, threat to staff... and all critical care pts) @ -no Medical Decision Making - Medical Decision Making 67 female to the emergency department with knee pain knee effusion knee injury. X-rays otherwise negative patient will follow-up with orthopedics regarding knee effusion - Radiology Data Radiology results: report reviewed (X-rays negative for acute disease positive effusion), image reviewed Disposition Clinical Impression: Right knee pain, Effusion, right knee Disposition: HOME SELF-CARE Condition: Good Instructions (If sedation given, give patient instructions): Swollen Knee Joint (ED) Is patient prescribed a controlled substance at d/c from ED?: No Referrals: Van Vicente MD [Primary Care Provider] - 1-2 days Liam Khanna MD [Medical Doctor] - 1-2 days Time of Disposition: 03:30
[2023-04-19] MEDS ORDERED: IBUPROFEN 600 MG STARTER PACK 4 TAB BTL PO STA (03:32)
[2023-04-19] MEDS ORDERED: ACET/COD 300 MG/30 MG STARTER PACK 6 TAB BTL PO STA (03:32)
[2023-04-19 04:09] VITALS: BP 145/74; PULSE 72
--- NOTE | 2023-04-19 06:01 | XR ---
EXAM: XR Right Knee, 3 Views CLINICAL HISTORY: Pain TECHNIQUE: Three views of the right knee. COMPARISON: No relevant prior studies available. FINDINGS: Bones/joints: No acute fracture. No dislocation. Mild medial and patellofemoral joint space narrowing. Soft tissues: Small super patellar joint effusion. IMPRESSION: No acute fracture. Mild medial and patellofemoral joint space degenerative changes. Small suprapatellar joint effusion.
== END 2023-04-19 04:02 | disposition home or self-care (01) ==
LOC: EC 01:16
DX: M25.561 Pain in right knee (principal); I10 Essential (primary) hypertension; J45.909 Unspecified asthma, uncomplicated; K21.9 Gastro-esophageal reflux disease without esophagitis; F12.90 Cannabis use, unspecified, uncomplicated; Z87.891 Personal history of nicotine dependence; Z79.899 Other long term (current) drug therapy; Z88.8 Allergy status to other drugs, medicaments and biological substances
CPT/HCPCS: 73562; 99284; 96372; J1170; J8540

== ENCOUNTER 2024-03-28 21:39 | Emergency (ER) | payer MEDICARE, BC ==
--- NOTE | 2024-03-28 22:17 | ED ---
Back Pain HPI - General Source: patient Limitations: no limitations <Vipin Adams - Last Filed: 03/28/24 22:13> <Shant Mcclendon - Last Filed: 03/29/24 03:11> - General Chief Complaint: Back Pain/Injury Stated Complaint: Lower Back Pain - History of Present Illness Initial Comments: Quick note: This is a 60-year-old female presenting with low back pain x 3 days. Patient states pain is sharp and stabbing as well as constant. Patient rates pain 10 out of 10. Patient states pain radiates to bilateral hips but not down legs. 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 Patient endorses seeing a provider yesterday for the back pain receiving "2 shots" and [place] p.o. with transient relief after shots but no re lief with oral medication. Patient denies fever, chills, saddle paresthesia, urinary incontinence/retention, urinary symptoms, chest pain, dyspnea, abdominal pain, N/V/D. (Vipin Adams) - Related Data Home Medications Medication Instructions Recorded Confirmed Omeprazole Magnesium [PriLOSEC OTC] 20 mg PO DAILY 10/14/17 05/19/22 ALPRAZolam [Xanax] 0.25 mg PO HS 08/30/20 05/19/22 Valsartan [Diovan] 80 mg PO HS 08/30/20 05/19/22 amLODIPine [Norvasc] 2.5 mg PO HS 08/30/20 05/19/22 diphenhydrAMINE [Benadryl] 50 mg PO HS 05/19/22 05/19/22 metHOTREXate sodium [Methotrexate] 2.5 mg PO 05/19/22 05/19/22 Previous Rx's Medication Instructions Recorded Lidocaine 5% Patch [Lidoderm 5% 1 patch TOPICAL DAILY PRN #30 patch 03/29/24 Patch] methylPREDNISolone Dose Pack 4 mg PO DIRECTED #1 packet 03/29/24 [Medrol Dose Pack] Allergies Allergy/AdvReac Type Severity Reaction Status Date / Time pregabalin [From Lyrica] AdvReac Suicidal Verified 03/28/24 21:55 thoughts Review of Systems ROS Other: All systems not noted in ROS Statement are negative. <Vipin Adams - Last Filed: 03/28/24 22:13> ROS Other: All systems not noted in ROS Statement are negative. <McclendonShant - Last Filed: 03/29/24 03:11> ROS Statement: Those systems with pertinent positive or pertinent negative responses have been documented in the HPI. Past Medical History Past Medical History: Asthma, Chest Pain / Angina, Fibromyalgia, GERD/Reflux, Hypertension, Osteoarthritis (OA), Rheumatoid Arthritis (RA) Additional Past Medical History / Comment(s): DJD. Pericarditis. Gout. RA. Hiatal Hernia. FATTY LIVER. HX UTI'S. History of Any Multi-Drug Resistant Organisms: None Reported Past Surgical History: Appendectomy, Cholecystectomy, Heart Catheterization, Hysterectomy Additional Past Surgical History / Comment(s): ganglion CYSTS AIDAN WRISTS removed. C. CATH 11/07/15, [place]. Past Anesthesia/Blood Transfusion Reactions: Previous Problems w/ Anesthesia Additional Past Anesthesia/Blood Transfusion Reaction / Comment(s): Claustrophobia. HAD RASH AFTER EPIDURAL INJ. Past Psychological History: No Psychological Hx Reported Smoking Status: Former smoker Past Alcohol Use History: None Reported Past Drug Use History: Marijuana - Past Family History Father History Unknown: Yes Family Medical History: Fibromyalgia, Rheumatoid Arthritis (RA) Additional Family Medical History / Comment(s): Poss MS, Parkinsons, and siblings with Fibromyalgia. Mother Family Medical History: Cancer Additional Family Medical History / Comment(s): ovarian,kidney cancer Sister(s) Family Medical History: Diabetes Mellitus <AngieVipin - Last Filed: 03/28/24 22:13> General Exam Limitations: no limitations <AngieVipin - Last Filed: 03/28/24 22:13> General appearance: alert, in no apparent distress Head exam: Present: atraumatic, normocephalic, normal inspection Eye exam: Present: normal appearance, EOMI Neck exam: Present: normal inspection. Absent: meningismus Respiratory exam: Present: normal lung sounds bilaterally. Absent: respiratory distress, wheezes, rales, rhonchi, stridor Cardiovascular Exam: Present: regular rate, normal rhythm, normal heart sounds. Absent: systolic murmur, diastolic murmur, rubs, gallop, clicks Back exam: Present: normal inspection, tenderness Neurological exam: Present: alert, oriented X3 Psychiatric exam: Present: normal affect, normal mood Skin exam: Present: warm, dry, normal color <Shant Mcclendon - Last Filed: 03/29/24 03:11> - General Exam Comments Initial Comments: Visual Physical Exam Vital signs reviewed General: Well-appearing, nontoxic, no acute distress. Head: Normocephalic, atraumatic Eyes: PERRLA, EOMI ENT: Airway patent Chest: Nonlabored breathing Skin: No visual rash, normal skin tone Neuro: Alert and oriented 3 Musculoskeletal: No gross abnormalities (Vipin Adams) Course Vital Signs 03/28/24 03/29/24 21:53 00:49 Temperature 98.3 F 98.2 F Pulse Rate 75 72 Respiratory 18 16 Rate Blood Pressure 147/71 147/72 O2 Sat by Pulse 100 96 Oximetry Medical Decision Making <Vipin Adams - Last Filed: 03/28/24 22:13> <Shant Mcclendon - Last Filed: 03/29/24 03:11> - Medical Decision Making I completed the quick note portion of this chart signed ADRIANA Arteaga (Vipin Adams) Was pt. sent in by a medical professional or institution ([facility], CAN S[facility]TER, urgent care, hospital, or long term...) When possible be specific @ -No Did you speak to anyone other than the patient for history (EMS, parent, family, police, friend...)? What history was obtained from this source @ -No Did you review nursing and triage notes (agree or disagree)? Why? @ -I reviewed and agree with nursing and triage notes Were old charts reviewed (outside hosp., previous admission, EMS record, old EKG, old radiological studies, urgent care reports/EKG's, long term records)? Report findings @ -No old charts were reviewed Differential Diagnosis (chest pain, altered mental status, abdominal pain women, abdominal pain men, vaginal bleeding, weakness, fever, dyspnea, syncope, headache, dizziness, GI bleed, back pain, seizure, CVA, palpatations, mental health, musculoskeletal)? @ - [facility] [place] Differential Back Pain: Strain, zoster, cauda equina syndrome, epidural abscess, vertebral osteomyelitis, discitis, fracture, subluxation, disc herniation, DJD, spinal stenosis, dissection, AAA, pancreatitis, peptic ulcer disease, pyelonephritis, kidney stone this is not meant to be an all-inclusive list. EKG interpreted by me (3pts min.). @ -As above X-rays interpreted by me (1pt min.). @ -Lumbar spine x-ray shows no acute findings. Multilevel degenerative changes have progressed from [address] interpreted by me (1pt min.). @ -None done U/S interpreted by me (1pt. min.). @ -None done What testing was considered but not performed or refused? (CT, X-rays, U/S, labs)? Why? @ -None What meds were considered but not given or refused? Why? @ -None Did you discuss the management of the patient with other professionals (professionals i.e. Dr., PA, CAN SORTER, lab, RT, psych nurse, social sciences department chair, scallop raker, teacher, senior administrative services officer, leather case finisher)? Give summary @ -No Was smoking cessation discussed for >3mins.? @ -No Was critical care preformed (if so, how long)? @ -No Were there social determinants of health that impacted care today? How? (Homelessness, low income, unemployed, alcoholism, drug addiction, transportation, low edu. Level, literacy, decrease access to med. care, shelter, rehab)? @ -No Was there de-escalation of care discussed even if they declined (Discuss DNR or withdrawal of care, Hospice)? DNR status @ -No What co-morbidities impacted this encounter? (DM, HTN, Smoking, COPD, CAD, Cancer, CVA, ARF, Chemo, Hep., AIDS, mental health diagnosis, sleep apnea, morbid obesity)? @ -None Was patient admitted / discharged? Hospital course, mention meds given and route, prescriptions, significant lab abnormalities, going to OR and other pertinent info. @ -68-year-old female presenting with chief complaint of lower back pain. Has been persistent the past few days. History of degenerative disc disease. No urinary symptoms fevers or vomiting. No injury. No red flag symptoms. Right- sided paraspinal muscle tenderness on exam. X-ray shows no acute findings. No evidence of pyelonephritis or kidney stone based on urine. Patient reports improvement after pain medication. Provided with referral to orthopedic digital imaging specialist and provided with work note. Discharged. Follow-up with PCP. Report back to ER with any new or worsening symptoms. Discussed return parameters and answered all questions. Patient conveyed verbal understanding and agreed to the plan. I discussed this case in detail with my attending Dr. Mortensen Undiagnosed new problem with uncertain prognosis? @ -No Drug Therapy requiring intensive monitoring for toxicity (Heparin, Nitro, Insulin, Cardizem)? @ -No Were any procedures done? @ -No Diagnosis/symptom? @ -Lumbar radiculopathy Acute, or Chronic, or Acute on Chronic? @ -Acute Uncomplicated (without systemic symptoms) or Complicated (systemic symptoms)? @ -Uncomplicated Side effects of treatment? @ -No Exacerbation, Progression, or Severe Exacerbation? @ -No Poses a threat to life or bodily function? How? (Chest pain, [place], [place], pneumonia, PE, COPD, DKA, ARF, appy, cholecystitis, CVA, Diverticulitis, Homicidal, Suicidal, threat to staff... and all critical care pts) @ -Unlikely (Shant Mcclendon) - Lab Data Lab Results 03/28/24 Range/Units 22:32 Urine Color Colorless Urine Appearance Clear (Clear) Urine pH 7.0 (5.0-8.0) Ur Specific [place] 1.010 (1.001-1.035) Urine Protein Negative (Negative) Urine Glucose (UA) Negative (Negative) Urine Ketones Negative (Negative) Urine Blood Trace H (Negative) Urine Nitrite Negative (Negative) Urine Bilirubin Negative (Negative) Urine Urobilinogen <2.0 (<2.0) mg/dL Ur Leukocyte Esterase Negative (Negative) Urine RBC 1 (0-5) /hpf Urine WBC 1 (0-5) /hpf Ur Squamous Epith Cells 1 (0-4) /hpf Urine Bacteria Rare H (None) /hpf Disposition <Vipin Adams - Last Filed: 03/28/24 22:13> Is patient prescribed a controlled substance at d/c from ED?: No <Shatn Mcclendon - Last Filed: 03/29/24 03:11> Clinical Impression: Lumbar radiculopathy Disposition: HOME SELF-CARE Condition: Good Instructions (If sedation given, give patient instructions): Acute Low Back Pain (ED) Additional Instructions: Follow-up with PCP and orthopedics. Report back to ER with any new or worsening symptoms. Prescriptions: Lidocaine 5% Patch [Lidoderm 5% Patch] 1 patch TOPICAL DAILY PRN #30 patch PRN Reason: Pain methylPREDNISolone Dose Pack [Medrol Dose Pack] 4 mg PO DIRECTED #1 packet Referrals: Van Vicente MD [Primary Care Provider] - 1-2 days Lexii Flood DO [Doctor of Osteopathic Medicine] - 1-2 days Phil Jiang DO [Doctor of Osteopathic Medicine] - 1-2 days
[2024-03-28] MEDS: KETOROLAC 15 MG/ML 1 ML VIAL IVP STA (22:41)
--- NOTE | 2024-03-28 22:43 | XR ---
EXAMINATION TYPE: XR lumbosacral spine min 4V DATE OF EXAM: 03/28/2024 CLINICAL HISTORY: Low back pain TECHNIQUE: Frontal, lateral, and oblique images of the lumbar spine are obtained. COMPARISON: Prior lumbar spine x-ray 2018 FINDINGS: There are 5 lumbar type vertebral bodies redemonstrated. The lumbar spine shows stable an d satisfactory alignment without evidence of acute fracture or dislocation. Vertebral body heights re main within normal limits. Severe disc space narrowing with some ossific fusion at the L2-L3 vertebra is now felt present. Moderate disc space narrowing and anterior spurring at L3-L4 and L4-L5 levels i s more prominent versus prior. Oblique images appear within normal limits. Cholecystectomy clips are redemonstrated. IMPRESSION: No acute findings are seen. Multilevel Degenerative changes have progressed from 2018 [facility]. [facility], , 03/28/2024 10:40 PM
[2024-03-28] MEDS: DEXAMETHASONE SOD PHOSPHATE 10 MG/ML 1 ML VIAL IV STA (22:46)
[2024-03-28] MEDS: LIDOCAINE 4% PATCH TOPICAL ONE (22:46)
[2024-03-28 22:49] LABS: Appearance,Urine Clear (Clear); Bacteria,Urine Rare /hpf; Bilirubin,Urine Negative (Negative); Blood,Urine Trace (Negative); Color,Urine Colorless; Glucose,Urine (UA) Negative (Negative); Ketones,Urine Negative (Negative); Leukocyte Esterase,Urine Negative (Negative); Nitrite,Urine Negative (Negative); Protein,Urine Negative (Negative); RBC,Urine 1 /hpf (0-5); Squamous Epithelial Cell,Urine 1 /hpf (0-4); Urobilinogen,Urine <2.0 mg/dL (<2.0); WBC,Urine 1 /hpf (0-5)
[2024-03-28] MEDS: MORPHINE SULFATE 2 MG/ML SYRINGE IVP STA (23:39)
[2024-03-29] MEDS: MORPHINE SULFATE 2 MG/ML SYRINGE IVP STA (00:13)
[2024-03-29 00:53] VITALS: BP 147/72; PULSE 72; RESP 16; TEMP 98.2
== END 2024-03-29 00:57 | disposition home or self-care (01) ==
LOC: EC 21:39
CPT/HCPCS: 72110; 81001; 96374; 96375; 96376; 99284

== ENCOUNTER → 2024-04-29 | Outpatient (CLI) | payer BC, MEDICARE ==
--- NOTE | 2024-04-29 17:15 | MR ---
EXAMINATION TYPE: MR lumbar spine wo/w con DATE OF EXAM: 04/29/2024 10:02 AM COMPARISON: 03/28/2024.. CLINICAL INDICATION: Female, 68 years old with history of M51.26 OTHER INTERVERTEBRAL DISC DISPLACEME NT, LUMBAR REGION; PHH, Worsening low back pain TECHNIQUE: Multi planar, multi sequence imaging was performed utilizing: T1-weighted, T2-weighted, a nd turbo inversion recovery imaging of the lumbar spine. IV Contrast: 7.5 mL Gadobutrol (None, if empty) FINDINGS: Alignment: The lumbar vertebral bodies have preserved heights and alignment. Cord: The conus medullaris and the distal spinal cord appear unremarkable with regards to their signa l intensity and morphology. Bones/Discs: Moderate to severe degeneration changes throughout the spine with osteophyte formation a nd facet joint arthropathy. Scattered Modic endplate changes throughout the spine. Intervertebral dis c signal is maintained. Reactive adjoining endplate edema at L4-L5 T12-L1: Disc bulge and facet joint arthropathy result in mild spinal canal and mild to moderate bilat eral neural foraminal stenosis. L1-L2: Disc bulge and facet joint arthropathy result in mild spinal canal and severe right and mild t o moderate left neural foraminal stenosis. L2-L3: Complete height of disc space loss with facet joint arthropathy result in mild spinal canal an d moderate to severe bilateral neural foraminal stenosis. L3-L4: Disc bulge and facet joint arthropathy result in mild spinal canal and mild right and moderate to severe left neural foraminal stenosis. L4-L5: Disc bulge and facet joint arthropathy result in mild spinal canal and moderate to severe bila teral neural foraminal stenosis. L5-S1: The disc has a rounded posterior morphology without significant spinal canal stenosis. Facet j oint arthropathy with moderate to severe left and moderate right neural foraminal stenosis. osteophyt e displaces the exiting left nerve series 601 image 3. No significant spinal canal or neural foraminal stenosis in the remainder of the visualized levels. Other findings: None. IMPRESSION: 1. No definitive evidence of disc herniation or significant spinal canal stenosis. 2. Moderate to severe disc degeneration with associated osteoarthritic changes. Neural foraminal bella nosis worse at L5-S1 with moderate to severe left, and L4-L5 moderate to severe bilateral, L3-L4 mode rate severe left, 3. Osteophyte displaces the exiting left L5-S1 nerve. [facility], , 04/29/2024 5:13 PM
== END | disposition home or self-care (01) ==
LOC: RADMRIMAIN 09:09
PROVIDERS: ATTEND Family Medicine
DX: M51.26 Other intervertebral disc displacement, lumbar region (principal); M51.369 Other intervertebral disc degeneration, lumbar region without mention of lumbar back pain or lower extremity pain; M47.816 Spondylosis without myelopathy or radiculopathy, lumbar region; M99.73 Connective tissue and disc stenosis of intervertebral foramina of lumbar region; M25.78 Osteophyte, vertebrae
CPT/HCPCS: 72158; A9585

== ENCOUNTER → 2024-09-15 | Outpatient (CLI) | payer BC, MEDICARE ==
--- NOTE | 2024-09-15 09:04 | MR ---
EXAMINATION TYPE: MR knee RT wo con DATE OF EXAM: 09/15/2024 COMPARISON: Right knee x-ray April 19, 2023 HISTORY: Right knee pain and swelling for 2 weeks after twisting injury, Past history of meniscal tea r and surgical repair TECHNIQUE: Multiplanar, multisequence images of the knee is performed without IV contrast. FINDINGS: MEDIAL MENISCUS: A large defect of central medial meniscus corresponds to history of prior surgery. S ome increased signal in the anterior and posterior horns. Increased signal posterior horn extends to the inferior articular surface sagittal image 12. LATERAL MENISCUS: Anterior and posterior horns are intact without tear. CRUCIATE LIGAMENTS: The anterior and posterior cruciate ligaments are intact and unremarkable. COLLATERAL LIGAMENTS: The medial collateral ligament and lateral collateral ligament complex are inta ct and unremarkable. EXTENSOR MECHANISM: Visualized quadriceps and patellar tendons are intact. EFFUSION: Moderate to large size suprapatellar joint effusion. POPLITEAL CYST: No popliteal/peralta cyst. TRICOMPARTMENT SPACES: Moderate to severe narrowing and mild to moderate spurring medial tibiofemoral compartment. Moderate narrowing and spurring patellofemoral compartment. CARTILAGE: Some chondromalacia patella with cartilaginous thinning along the superior medial aspect o f the posterior patellar pole. Significant full-thickness cartilaginous loss medial tibiofemoral comp artment. BONE MARROW SIGNAL: Vague areas of diminished T1 and increased T2 signal medial tibial femoral compar tment and slight subtle full-thickness cartilaginous loss. OTHER: No additional significant abnormality is appreciated. IMPRESSION: 1. Prior medial meniscal surgery. There is intrasubstance tear in the remnant anterior horn. There is suspected new full-thickness tear in the remnant posterior horn. 2. Tricompartment degenerative changes are present as detailed above. At least moderate findings in t he patellofemoral compartment are seen. Severe findings in the medial tibial femoral compartment are noted. 3. Moderate to large-size suprapatellar joint effusion. [facility], , 09/15/2024 9:02 AM
== END | disposition home or self-care (01) ==
LOC: RADMRIMAIN 08:02
PROVIDERS: ATTEND Family Medicine
DX: S83.241A Other tear of medial meniscus, current injury, right knee, initial encounter (principal); M17.11 Unilateral primary osteoarthritis, right knee; M25.461 Effusion, right knee; X58.XXXA Exposure to other specified factors, initial encounter

== ENCOUNTER → 2024-10-12 | Outpatient (CLI) | payer BC, MEDICARE ==
[2024-10-12 09:17] VITALS: BP 125/68; PULSE 77; RESP 16; TEMP 97.9
--- NOTE | 2024-10-12 16:35 | P.PAINPG ---
PQRS Measure Charge Sheet Comment: HISTORY OF PRESENT ILLNESS: A 69 yr old female as a referral from Dr Vicente presents today w severe and chronic LBP > 1 yr secondary to R L4-L5 mod-severe neuroforaminal stenosis, L L3-S1 mod-severe neuroforaminal stenoses, BL Sacroiliitis for evaluation. Pt states pain level is provoked at 4-10 /10 in intensity, constant, localized in the lumbar spine, predominantly axial, stabbing in character w occasional shooting pain towards the R hip. Pain is provoked by walking/ standing for periods > 20 or bending. Pain is alleviated by PT x 6 wks which ended in 2018 (had PT visit in Winter 2024 but was not covered due to insurance issues and provoking severe pain), physician guided home exercises 4-5 times weekly since Winter 2024, heat, medications, repositioning and rest . Oswestry axial pain score at 27. PMH: OA, Asthma, Angina, Pericarditis, Fibromyalgia, GERD, HTN, RA, HH, Fatty Liver Disease, Gout PSH: Appendectomy, Cholecystectomy, Heart Catheterization (2016), Hysterectomy, BL Wrist Ganglion Cystectomy SH: Former tobacco user, No ETOH use, Cannabis use FH: Fa- RA, Parkinsons. Mo- Ovarian/ Renal CA. Sis- DM All: See list Meds: See list including Neurontin, Lidocaine REVIEW OF ORGAN SYSTEMS: CONSTITUTIONAL: No fevers or chills. No recent weight loss. NEUROLOGICAL: + numbness and tingling along the distal extremities. No seizure disorders or headaches. MUSCULOSKELETAL: + pain PSYCHIATRIC: Denies current depression or suicidal thoughts. Physical Examinations : Constitutional : Cooperative , not in acute distress . Neurologic : Cranial nerve II to XII intact. No focal neurological deficits. Psychiatric : alert & oriented x 3. Matching mood & appropriate affect. Judgment & insight intact. Musculoskeletal : Cervical Spine Motor strength in the deltoid and biceps: Normal right side. Normal Left side Motor strength biceps and the wrist extensors: Normal right side . Normal left side Motor strength in the triceps muscle: Normal right side. Normal left side Deep tendon reflexes: Normal at the biceps. Normal at Brachioradialis. Normal at triceps Vertebral body tenderness to deep palpation over Cervical facet loading test: positive bilaterally Spurling test: positive bilaterally Neck distraction test: positive bilaterally Uriel sign: positive bilaterally Lumbar spine Motor strength lower extremities ,thigh and legs 5/5 Right side , 5/5 Left side Deep tendon reflexes : Normal Knee Jerk. Normal Ankle Jerk Vertebral body tenderness over Hughes Test positive Lumbar facet Loading Test: positive Right / positive Left Range of motion of the lumbar spine Flexion 30 degrees, extension 10 degrees Straight Leg Raise test: Left/ Right positive at degrees Rey test: positive right / positive left. Severe tenderness over the Sacroiliac joint on the Right / Left sides Gaenslen test: positive bilaterally Seated flexion test: positive bilaterally. Sacral spine : Severe tenderness over the Sacroiliac joint: right side / left side Range of motion: Flexion of the lumbar spine <60 degrees Range of motion: Extension of the lumbar spine <20 degrees Gaenslen's Test positive R> L Rey test: positive right side > left side Thigh Thrust Test Positive BL Sacral Thrust Test Imaging: MRI with/ without contrast lumbar spine from 04/29/24 reviewed Assessment/ Plan : R L4-L5 mod-severe neuroforaminal stenosis, L L3-S1 mod-severe neuroforaminal stenoses, BL Sacroiliitis Recommendation of BL SI #1. Risks, benefits of procedure discussed and patient verbalized understanding. Admits to anti- coagulant use or medical history of diabetes. All questions answered. I have spent greater than 30 minutes on patient care today. Dr Cavazos was available by phone for the evaluation of this patient. The time was used to review the medical records including relevant urine studies and Prescription history (MAPs), review of the available imaging, evaluation and examination of the patient, coordination of care with the medical staff and if applicable referring physicians, as well as creation of the medical record PQRS Narrative: Smoking Status Former smoker Home Medications: Ambulatory Orders Omeprazole Magnesium [PriLOSEC OTC] 20 mg PO DAILY 10/14/17 Valsartan [Diovan] 80 mg PO HS 08/30/20 amLODIPine [Norvasc] 2.5 mg PO HS 08/30/20 metHOTREXate sodium 2.5 mg PO FR 05/19/22 Lidocaine 5% Patch [Lidoderm 5% Patch] 1 patch TOPICAL DAILY PRN #30 patch 03/29/24 methylPREDNISolone Dose Pack [Medrol Dose Pack] 4 mg PO DIRECTED #1 packet 03/29/24 ALPRAZolam [Xanax] 1 mg PO HS 10/12/24 Albuterol Inhaler [Ventolin Hfa Inhaler] 1 - 2 puff INHALATION Q6H 10/12/24 Gabapentin [Neurontin] 100 mg PO TID 10/12/24 Montelukast [Singulair] 10 mg PO DAILY 10/12/24 Tiotropium Br/Olodaterol HCl [Stiolto Respimat Inhaler (60)] 1 puff INHALATION 10/12/24 Controlled Substance Measures - Controlled Substance Measures Is patient prescribed a controlled substance at discharge?: No
== END ==
LOC: PNWHC3 08:56
PROVIDERS: ATTEND Specialist
DX: M48.061 Spinal stenosis, lumbar region without neurogenic claudication (principal); M48.07 Spinal stenosis, lumbosacral region; M46.1 Sacroiliitis, not elsewhere classified; F12.90 Cannabis use, unspecified, uncomplicated; Z88.8 Allergy status to other drugs, medicaments and biological substances; Z87.891 Personal history of nicotine dependence
CPT/HCPCS: 99211

== ENCOUNTER → 2024-11-26 | Outpatient (CLI) | payer BC, MEDICARE ==
[2024-11-26 10:34] VITALS: BP 137/59; PULSE 77; RESP 17; TEMP 97.6
--- NOTE | 2024-11-26 16:21 | P.PAINPG ---
PQRS Measure Charge Sheet Comment: HISTORY OF PRESENT ILLNESS: A 69 yr old female presents today w severe and chronic LBP > 1 yr secondary to R L4-L5 mod-severe neuroforaminal stenosis, L L3-S1 mod-severe neuroforaminal stenoses, BL Sacroiliitis for evaluation s/p BL SI #1. Pt states she experienced 60 % pain relief x 1 wks s/p procedure. Pt states pain level is provoked at 4-10 /10 in intensity, constant, localized in the lumbar spine, predominantly axial, stabbing in character w occasional shooting pain towards the R hip. Pain is provoked by walking/ standing for periods > 20 or bending. Pain is alleviated by PT x 6 wks which ended in 2018 (had PT visit in Winter 2024 but was not covered due to insurance issues and provoking severe pain), physician guided home exercises 4-5 times weekly since Winter 2024, heat, medications, repositioning and rest . Oswestry axial pain score at 27. Interventional procedures include BL SI x1 (11/01) Medications include Neurontin, Lidocaine, Cannabis/ CBD REVIEW OF ORGAN SYSTEMS: CONSTITUTIONAL: No fevers or chills. No recent weight loss. NEUROLOGICAL: + numbness and tingling along the distal extremities. No seizure disorders or headaches. MUSCULOSKELETAL: + pain PSYCHIATRIC: Denies current depression or suicidal thoughts. Physical Examinations : Constitutional : Cooperative , not in acute distress . Neurologic : Cranial nerve II to XII intact. No focal neurological deficits. Psychiatric : alert & oriented x 3. Matching mood & appropriate affect. Judgment & insight intact. Musculoskeletal : Cervical Spine Motor strength in the deltoid and biceps: Normal right side. Normal Left side Motor strength biceps and the wrist extensors: Normal right side . Normal left side Motor strength in the triceps muscle: Normal right side. Normal left side Deep tendon reflexes: Normal at the biceps. Normal at Brachioradialis. Normal at triceps Vertebral body tenderness to deep palpation over Cervical facet loading test: positive bilaterally Spurling test: positive bilaterally Neck distraction test: positive tamera aterally Uriel sign: positive bilaterally Lumbar spine Motor strength lower extremities ,thigh and legs 5/5 Right side , 5/5 Left side Deep tendon reflexes : Normal Knee Jerk. Normal Ankle Jerk Vertebral body tenderness over Hughes Test positive Lumbar facet Loading Test: positive Right / positive Left Range of motion of the lumbar spine Flexion 30 degrees, extension 10 degrees Straight Leg Raise test: Left/ Right positive at degrees Rey test: positive right / positive left. Severe tenderness over the Sacroiliac joint on the Right / Left sides Gaenslen test: positive bilaterally Seated flexion test: positive bilaterally. Sacral spine : Severe tenderness over the Sacroiliac joint: right side / left side Range of motion: Flexion of the lumbar spine <60 degrees Range of motion: Extension of the lumbar spine <20 degrees Gaenslen's Test positive R> L Rey test: positive right side > left side Thigh Thrust Test Positive BL Sacral Thrust Test Imaging: MRI with/ without contrast lumbar spine from 04/29/24 reviewed Assessment/ Plan : R L4-L5 mod-severe neuroforaminal stenosis, L L3-S1 mod-severe neuroforaminal stenoses, BL Sacroiliitis Recommendation of follow up w Dr Jiang to explore additional treatment options. All questions answered. I have spent greater than 30 minutes on patient care today. Dr Cavazos was available by phone for the evaluation of this patient. The time was used to review the medical records including relevant urine studies and Prescription h istory (MAPs), review of the available imaging, evaluation and examination of the patient, coordination of care with the medical staff and if applicable referring physicians, as well as creation of the medical record PQRS Narrative: Smoking Status Former smoker Hx Alcohol Use (MH) No Home Medications: Ambulatory Orders Omeprazole Magnesium [PriLOSEC OTC] 20 mg PO DAILY 10/14/17 amLODIPine [Norvasc] 2.5 mg PO HS 08/30/20 Lidocaine 5% Patch [Lidoderm 5% Patch] 1 patch TOPICAL DAILY PRN #30 patch 03/29/24 ALPRAZolam [Xanax] 1 mg PO HS 10/12/24 Albuterol Inhaler [Ventolin Hfa Inhaler] 1 - 2 puff INHALATION Q6H PRN 10/12/24 Gabapentin [Neurontin] 100 mg PO TID 10/12/24 Montelukast [Singulair] 10 mg PO DAILY 10/12/24 Tiotropium Br/Olodaterol HCl [Stiolto Respimat Inhaler (60)] 1 puff INHALATION DAILY 10/12/24 Bumetanide [BUMEX] 0.5 mg PO DAILY 10/28/24 Cetirizine HCl 10 mg PO DAILY 10/28/24 Etanercept [Enbrel Sureclick] 50 mg SQ Q7D 10/28/24 Potassium Chloride [Potassium Chloride ER (K-Dur GEQ)] 20 meq PO DAILY 10/28/24 Valsartan/Hydrochlorothiazide [Valsartan-Hctz 80-12.5 mg Tab] 1 tab PO HS 10/28/24 Controlled Substance Measures - Controlled Substance Measures Is patient prescribed a controlled substance at discharge?: No
== END ==
LOC: PNWHC3 10:13
PROVIDERS: ATTEND Specialist
DX: M48.061 Spinal stenosis, lumbar region without neurogenic claudication (principal); M46.1 Sacroiliitis, not elsewhere classified; F12.90 Cannabis use, unspecified, uncomplicated; Z87.891 Personal history of nicotine dependence; Z91.048 Other nonmedicinal substance allergy status; Z88.6 Allergy status to analgesic agent
CPT/HCPCS: 99211